=== PATIENT | female | born 1980 | race Caucasian/White ===

== ENCOUNTER 2016-11-27 03:57 | Inpatient (IN) | payer BC ==
[~2016-11-27] VITALS: Ht 165.1 cm; Wt 98.3 kg
[2016-11-27 04:46] LABS: URINE BLOOD (Dip) POC Trace-intact (NEGATIVE)
[2016-11-27 05:02] LABS: ADD UMIC YES; URINE BILIRUBIN (Dip) NEGATIVE (NEGATIVE); URINE BLOOD (Dip) TRACE (NEGATIVE); URINE COLOR LT. YELLOW (YELLOW); URINE GLUCOSE (Dip) >=1000 % (NEGATIVE); URINE KETONES (Dip) NEGATIVE (NEGATIVE); URINE LEUKOCYTE ESTERASE (Dip) NEGATIVE (NEGATIVE); URINE NITRITE (Dip) NEGATIVE (NEGATIVE); URINE TOTAL PROTEIN (Dip) NEGATIVE (NEGATIVE); URINE UROBILINOGEN (Dip) 0.2 E.U./dL (0.1-1.0)
[2016-11-27] MEDS ORDERED: morphine 4 MG/ML VIAL IV STA (05:07)
[2016-11-27] MEDS ORDERED: SOD CHLORIDE 0.9% 500 ML IV STA (05:07)
[2016-11-27] MEDS ORDERED: ONDANSETRON 4 MG INJ IV STA (05:07)
[2016-11-27 05:24] LABS: BACTERIA,URINE MANY; SQUAMOUS EPITHELIAL CELL,UR OCCASIONAL; URINE RBCS 0-2 /HPF (0)
[2016-11-27] MEDS ORDERED: IBUPROFEN 600 MG TAB PO ONE (05:30)
[2016-11-27 05:36] LABS: ADD SCAN DIFF NO
[2016-11-27 06:01] LABS: CALCIUM 9.6 mg/dl (8.4-10.2); CREATININE 0.63 mg/dl (0.44-1.00); POTASSIUM 3.3 mmol/L (3.5-5.1)
[2016-11-27 06:02] LABS: ABNORMAL IP MESSAGE 1; HEMATOCRIT 38.1 % (37.0-47.0); HEMOGLOBIN 12.5 g/dl (12.0-16.0); MEAN CORPUSCULAR HEMOGLOBIN 32.6 pg (29.0-33.0); MEAN CORPUSCULAR HGB CONC 32.8 g/dl (32.0-37.0); MEAN CORPUSCULAR VOLUME 99.2 fl (82.0-101.0); MEAN PLATELET VOLUME 9.5 fl (7.4-10.4); PLATELET COUNT 299 10^3/UL (140-415); RED BLOOD COUNT 3.84 10^6/ul (4.20-5.40); RED CELL DISTRIBUTION WIDTH 14.7 % (11.5-14.5); WHITE BLOOD COUNT 7.8 10^3/ul (4.8-10.8)
[2016-11-27] MEDS ORDERED: DICLOFENAC SODIUM 37.5 MG/ML VIAL IV STA (06:20)
--- NOTE | 2016-11-27 07:11 | RADRPT ---
PROCEDURE: US Pelvis. CLINICAL INDICATION: Pelvic pain TECHNIQUE: Sonographic evaluation of the pelvis was performed utilizing transabdominal technique o nly. Curved array transabdominal transducer was utilized. Images were reviewed on the [employer] on PACS workstation. COMPARISON: Ultrasound, 07/19/2009 FINDINGS: The uterus is normal in size, echogenicity, and morphology measuring 8.0 x 3.7 x 3.6 cm in dimension . The uterus is anteverted in normal position. The endometrium measures 3.9 mm in diameter. The normal trilaminar stripe of the endometrium is preserved. The right ovary measures 2.4 x 1.3 x 1.8 cm in dimension. The left ovary measures 2.9 x 1.3 x 2.1 c m in dimension, and demonstrates a 14 mm dominant follicle. No ovarian torsion, adnexal mass or pel yovana free fluid is identified. IMPRESSION: 1. Left ovary demonstrates a 14 mm dominant follicle. 2. Otherwise unremarkable ultrasound exam. RPTAT: PP .Drew Santo MD, Date Time Electronically viewed and signed by .Drew Santo MD, on 11/27/2016 07:11 .R/
[2016-11-27] MEDS ORDERED: SOD CHLORIDE 0.9% 100 ML ONE (07:29)
[2016-11-27] MEDS ORDERED: IOHEXOL 300MG/ML 150 ML BTL ONE (07:29)
[2016-11-27 07:55] LABS: LYMPHOCYTES # 1.1 10^3/ul (0.8-2.9); MONOCYTE # 0.2 10^3/ul (0.3-0.9); MYELOCYTES # 0.2; NEUTROPHIL # 5.6 10^3/ul (1.6-7.5)
[2016-11-27] MEDS ORDERED: NICARDipine HCL 30 MG CAPSULE PO ONE (08:00)
--- NOTE | 2016-11-27 08:19 | RADRPT ---
PROCEDURE: CT Abdomen and Pelvis with contrast. CLINICAL INDICATION: Abdominal pain. TECHNIQUE: CT scan of the abdomen and pelvis with contrast was performed utilizing axial tomograph ic images from the domes the diaphragm to the symphysis pubis. The patient was scanned post uncomp licated intravenous administration of 100 cc of Omnipaque 300. Coronal and sagittal reformatted omid ges were obtained from the axial source images. Images were reviewed on a high-resolution PACS works tation. The total exam CTDI equals 19.94 mGy and the total exam DLP equals 1253.45 mGy-cm. One or m ore of the following dose reduction techniques were used: Automated exposure control, adjustment of the mA and / or kV according to patient size, or use of iterative reconstruction technique. COMPARISON: Pelvic ultrasound performed earlier on the same date FINDINGS: The lung bases demonstrate mild bilateral dependent atelectasis. The liver is normal in size and c ontour. No focal intrahepatic masses are identified. There is no intra or extrahepatic biliary dil atation. The gallbladder is unremarkable by CT criteria. The spleen, pancreas, and adrenal glands are unremarkable. The kidneys are symmetric in size and demonstrate normal enhancement. No hydronephrosis or hydroure ter is seen. No renal parenchymal mass is identified. The urinary bladder is unremarkable. There are scattered foci of free air throughout the abdomen. The bowel demonstrates normal course a nd caliber. There is no evidence of bowel obstruction. There is focal bowel wall thickening and mes enteric fat stranding along the distal sigmoid colon with adjacent pocket of free air suggesting sit e of viscus perforation. The appendix is normal in appearance. The uterus and adnexa are unremarkab le. There is small free fluid along the liver and within the pelvis. No retroperitoneal, mesenteric, or inguinal adenopathy is identified. The abdominal aorta and major branching vessels are normal in caliber. The osseous structures are u nremarkable. No significant subcutaneous soft tissue abnormality is identified. IMPRESSION: 1. Perforated viscus. Site of perforation appears to be the distal sigmoid colon which demonstrate s mucosal thickening and adjacent mesenteric fat stranding. No source of perforation is identified. No diverticula are identified. 2. Small volume abdominal and pelvic ascites. Critical results were discussed with Dr. Cartagena on 11/27/2016 at 8:14 AM RPTAT: HH .Kanwal Becker MD, MD Date Time Electronically viewed and signed by .Kanwal Becker MD, MD on 11/27/2016 08:19 .G/
[2016-11-27] MEDS ORDERED: ERTAPENEM SODIUM 1 GM in SOD CHLORIDE 0.9% 100 ML IVPB ONE (08:30)
--- NOTE | 2016-11-27 08:51 | ERA ---
ER Documentation Chief Complaint Date/Time DATE: 11/27/16 TIME: 08:44 Chief Complaint lower abd/pelvic pain x3 days. pain during urination HPI This is a 36 year female complaining of some lower abdominal pain onset yesterday late afternoon has progressively gotten worse over the night. The patient is a very poor historian. She describes the pain is sharp and achy. She says that she feels like there is a pulsation in her lower pelvis and has some vaginal pain. Is also complaining of some dysuria for the past 3 days but no hematuria no nausea vomiting diarrhea no fever. No chest pain shortness of breath. ROS All systems reviewed and are negative except as per history of present illness. Medications Home Meds No Active Prescriptions or Reported Meds Allergies Allergies: Coded Allergies: No Known Allergy (Unverified , 08/02/15) PMhx/Soc History of Surgery: Yes (D&C X3) Anesthesia Reaction: No Hx Neurological Disorder: No Hx Respiratory Disorders: No Hx Cardiac Disorders: No Hx Psychiatric Problems: No Hx Miscellaneous Medical Probl: Yes (diabetes, htn) Hx Alcohol Use: No Hx Substance Use: No Hx Tobacco Use: No Smoking Status: Never smoker FmHx Family History: No coronary disease Physical Exam Vitals Vital Signs Date Time Temp Pulse Resp B/P Pulse Ox O2 Delivery O2 Flow Rate FiO2 11/27/16 07:00 100 18 152/108 100 Room Air 11/27/16 04:03 98.3 92 18 177/113 100 Physical Exam Const: Well-developed, well-nourished Head: Atraumatic, normocephalic Eyes: Normal Conjunctiva, PERRLA, EOMI, normal sclera, no nystagmus ENT: Normal External Ears, Nose and Mouth, moist mucus membranes. Neck: Full range of motion. No meningismus, no lymphadenopathy. Resp: Clear to auscultation bilaterally, no wheezing, rhonchi, rales Cardio: Regular rate and rhythm, no murmurs, S1 S2 present Abd: Soft, diffuse tenderness with most tenderness in bilateral lower quadrants moderate in nature some mild localized rebound mild guarding, non distended. Normal bowel sounds, no pulsitile abdominal masses or bruits Skin: No petechiae or rashes, no ecchymosis , no maculopapular rash Back: No midline or flank tenderness Ext: No cyanosis, or edema, FROM x 4, normal inspection, neurovascularly intact x 4 Neur: Awake and alert, STR 5/5 x 4, sensation intact x 4, no focal findings, cerebellum intact Psych: Normal Mood and Affect Result Diagram: 11/27/1651811/27/16 0519 Results 24 hrs Laboratory Tests Test 11/27/16 04:31 11/27/16 04:48 11/27/16 05:19 Urine Color LT. YELLOW Urine Clarity CLEAR Urine pH 6.0 Urine Specific [place] 1.010 Urine Ketones NEGATIVE Urine Nitrite NEGATIVE Urine Bilirubin NEGATIVE Urine Urobilinogen 0.2 E.U./dL Urine Leukocyte Esterase NEGATIVE Urine Microscopic RBC 0-2/HPF Urine Microscopic WBC 0-2/HPF Urine Squamous Epithelial Cells OCCASIONAL Urine Bacteria MANY Urine Starch OCCASIONAL Urine Hemoglobin TRACE Urine Glucose >=1000% Urine Total Protein NEGATIVE Bedside Urine pH (LAB) 6.0 Bedside Urine Protein (LAB) Negative Bedside Urine Glucose (UA) 0.50% Bedside Urine Ketones (LAB) Negative Bedside Urine Blood Trace-intact Bedside Urine Nitrite (LAB) Negative Bedside Urine Leukocyte Esterase (L Negative White Blood Count 7.810^3/ul Red Blood Count 3.8410^6/ul Hemoglobin 12.5g/dl Hematocrit 38.1% Mean Corpuscular Volume 99.2fl Mean Corpuscular Hemoglobin 32.6pg Mean Corpuscular Hemoglobin Concent 32.8g/dl Red Cell Distribution Width 14.7% Platelet Count 23364^3/UL Mean Platelet Volume 9.5fl Neutrophils % 72.0% Band Neutrophils % 6.0% Lymphocytes % 14.0% Reactive Lymphocytes % 1.0% Monocytes % 3.0% Metamyelocytes % 2.0% Myelocytes % 2.0% Nucleated Red Blood Cells % 1.0/100WBC Neutrophils # 5.610^3/ul Lymphocytes # 1.110^3/ul Monocytes # 0.210^3/ul Metamyelocytes # 0.2 Myelocytes # 0.2 Sodium Level 142mmol/L Potassium Level 3.3mmol/L Chloride Level 102mmol/L Carbon Dioxide Level 29mmol/L Anion Gap 14 Blood Urea Nitrogen 28mg/dl Creatinine 0.63mg/dl Glucose Level 304mg/dl Calcium Level 9.6mg/dl Current Medications Medications (Trade) Dose Ordered Sig/Danyel Route PRN Reason Start Time Stop Time Status Last Admin Dose Admin Sodium Chloride (NS) 500 ml @ 500 mls/hr Q1H STAT IV 11/27/16 05:07 11/27/16 06:06 DC Morphine Sulfate (morphine) 4 mg ONCE STAT IV 11/27/16 05:07 11/27/16 05:13 DC Ondansetron HCl (Zofran Inj) 4 mg ONCE STAT IV 11/27/16 05:07 11/27/16 05:13 DC Ibuprofen (Motrin) 600 mg ONCE ONCE PO 11/27/16 05:30 11/27/16 05:31 DC 11/27/16 05:32 Diclofenac Sodium (Dyloject) 37.5 mg ONCE STAT IV 11/27/16 06:20 11/27/16 06:21 DC 11/27/16 07:07 IV Flush 10 ml 10 ml STK-MED ONCE .ROUTE 11/27/16 07:29 11/27/16 07:30 DC 11/27/16 07:56 Sodium Chloride (NS) 100 ml @ ud STK-MED ONCE .ROUTE 11/27/16 07:29 11/27/16 07:30 DC 11/27/16 07:56 Iohexol (Omnipaque 300mg/ ml) 150 ml STK-MED ONCE .ROUTE 11/27/16 07:29 11/27/16 07:30 DC 11/27/16 07:59 Nicardipine HCl 30 mg 30 mg ONCE ONCE PO 11/27/16 08:00 11/27/16 08:01 DC 11/27/16 07:42 Ertapenem/Sodium Chloride (Invanz/NS) 100 ml @ 200 mls/hr ONCE ONCE IVPB 11/27/16 08:30 11/27/16 08:59 Procedures/MDM OCEDURE: US Pelvis. CLINICAL INDICATION: Pelvic pain TECHNIQUE: Sonographic evaluation of the pelvis was performed utilizing transabdominal technique only. Curved array transabdominal transducer was utilized. Images were reviewed on the high-resolution PACS workstation. COMPARISON: Ultrasound, 07/19/2009 FINDINGS: The uterus is normal in size, echogenicity, and morphology measuring 8.0 x 3.7 x 3.6 cm in dimension. The uterus is anteverted in normal position. The endometrium measures 3.9 mm in diameter. The normal trilaminar stripe of the endometrium is preserved. The right ovary measures 2.4 x 1.3 x 1.8 cm in dimension. The left ovary measures 2.9 x 1.3 x 2.1 cm in dimension, and demonstrates a 14 mm dominant follicle. No ovarian torsion, adnexal mass or pelvic free fluid is identified. IMPRESSION: 1. Left ovary demonstrates a 14 mm dominant follicle. 2. Otherwise unremarkable ultrasound exam. RPTAT: PP .Drew Santo MD, MD Date Time Electronically viewed and signed by .Drew Santo MD, MD on 11/27/2016 07: 11 .R/ CC: JAMESON LEON PROCEDURE: CT Abdomen and Pelvis with contrast. CLINICAL INDICATION: Abdominal pain. TECHNIQUE: CT scan of the abdomen and pelvis with contrast was performed utilizing axial tomographic images from the domes the diaphragm to the symphysis pubis. The patient was scanned post uncomplicated intravenous administration of 100 cc of Omnipaque 300. Coronal and sagittal reformatted images were obtained from the axial source images. Images were reviewed on a high-resolution PACS workstation. The total exam CTDI equals 19.94 mGy and the total exam DLP equals 1253.45 mGy-cm. One or more of the following dose reduction techniques were used: Automated exposure control, adjustment of the mA and / or kV according to patient size, or use of iterative reconstruction technique. COMPARISON: Pelvic ultrasound performed earlier on the same date FINDINGS: The lung bases demonstrate mild bilateral dependent atelectasis. The liver is normal in size and contour. No focal intrahepatic masses are identified. There is no intra or extrahepatic biliary dilatation. The gallbladder is unremarkable by CT criteria. The spleen, pancreas, and adrenal glands are unremarkable. The kidneys are symmetric in size and demonstrate normal enhancement. No hydronephrosis or hydroureter is seen. No renal parenchymal mass is identified. The urinary bladder is unremarkable. There are scattered foci of free air throughout the abdomen. The bowel demonstrates normal course and caliber. There is no evidence of bowel obstruction. There is focal bowel wall thickening and mesenteric fat stranding along the distal sigmoid colon with adjacent pocket of free air suggesting site of viscus perforation. The appendix is normal in appearance. The uterus and adnexa are unremarkable. There is small free fluid along the liver and within the pelvis. No retroperitoneal, mesenteric, or inguinal adenopathy is identified. The abdominal aorta and major branching vessels are normal in caliber. The osseous structures are unremarkable. No significant subcutaneous soft tissue abnormality is identified. IMPRESSION: 1. Perforated viscus. Site of perforation appears to be the distal sigmoid colon which demonstrates mucosal thickening and adjacent mesenteric fat stranding. No source of perforation is identified. No diverticula are identified. 2. Small volume abdominal and pelvic ascites. Critical results were discussed with Dr. Obrien on 11/27/2016 at 8:14 AM RPTAT: HH .Kanwal Becker MD, MD Date Time Electronically viewed and signed by .Kanwal Becker MD, on 11/27/2016 08 :19 .G/ CC: BREE OBRIEN DO Patient was given 1 g of Invanz IV. I spoke with general surgeon on-call Dr. Unger who was seen in consultation. Departure Diagnosis: Primary Impression: Bowel perforation Condition: Stable BREE OBRIEN DO Nov 27, 2016 08:51
[2016-11-27] MEDS ORDERED: ACETAMINOPHEN 325 MG TAB PO PRN (09:30)
[2016-11-27] MEDS ORDERED: ONDANSETRON 4 MG INJ IV PRN (09:30)
[2016-11-27] MEDS: SOD CHLORIDE 0.9% 1,000 ML IV SCH ×2 (09:47→11:19)
--- NOTE | 2016-11-27 09:53 | RADRPT ---
PROCEDURE: Chest Radiograph. CLINICAL INDICATION: Chest pain TECHNIQUE: Single frontal chest radiograph. COMPARISON: CT abdomen pelvis 11/27/2016 FINDINGS: The cardiomediastinal silhouette is within normal limits. Note is made of pneumoperitoneum. No infi ltrate or effusion is seen. The bones are intact. IMPRESSION: 1. No evidence of acute cardiopulmonary disease. 2. Pneumoperitoneum, previously reported to Dr. Cartagena at time of CT scan interpretation. RPTAT: KK .Filiberto Young MD, MD Date Time Electronically viewed and signed by .Filiberto Young MD, MD on 11/27/2016 09:52 .B/
[2016-11-27] MEDS ORDERED: METF500T4 PO (09:56)
[2016-11-27] MEDS ORDERED: BUSP10TA2 PO (09:57)
[2016-11-27] MEDS ORDERED: VALS320T11 PO (09:57)
[2016-11-27] MEDS ORDERED: FURO20TA3 PO (09:57)
[2016-11-27] MEDS ORDERED: CITA20TA11 PO (09:58)
[2016-11-27 10:19] LABS: INR 0.91; PROTIME 12.3 Sec (12.2-14.2)
[2016-11-27 11:07] LABS: ALBUMIN 4.4 g/dl (3.3-4.9); BILIRUBIN,INDIRECT 0.5 mg/dl (0-1.1); BILIRUBIN,TOTAL 0.5 mg/dl (0.2-1.3); TOTAL PROTEIN 6.2 g/dl (6.1-8.1)
[2016-11-27 11:41] LABS: PARTIAL THROMBOPLASTIN TIME 20.8 Sec (25.0-35.0)
--- NOTE | 2016-11-27 12:35 | HP ---
Date/Time of Note Date/Time of Note DATE: 11/27/16 TIME: 12:35 Assessment/Plan VTE Prophylaxis VTE Prophylaxis Intervention: SCD's Lines/Catheters IV Catheter Type (from Nrsg): Peripheral IV Assessment/Plan Assessment/Plan 36 yo F with pmhx obesity cb DM2, HTN and depression/anxiety admitted for abd pain found to have sigmoid perforation with peritonitis. #sigmoid perforation with peritonitis -general surgery Dr Unger on consult. defer to gen surg regarding surgical planning -cont abx as per gen surg #depression/anxiety: cont home meds #HTN: cont home arb #DM2: hold metformin. SSI with accuchecks FEN: NPO, advance as per gen surg Prophx: SCDs/SQH dispo: as per gen surg HPI/ROS Admit Date/Time Admit Date/Time Nov 27, 2016 at 09:30 Hx of Present Illness 36 yo F presents with 1 day of severe diffuse abd and vaginal pain. CT in the ER revealed colonic perforation. Pt denies any recent heavy NSAID use or any h/ o IBD. Pt quite anxious because she is supposed to start a new job next week and does not know how long she'll be in the hospital. ROS 10p ROS neg except as per HPI PMH/Family/Social Past Medical History depression/anxiety, HTN, DM2, obesity Past Surgical History h/o D and C 2.16 for incomplete Ab Social History starts new job next week Smoking Status: Never smoker Exam/Review of Systems Vital Signs Vitals Vital Signs Date Time Temp Pulse Resp B/P Pulse Ox O2 Delivery O2 Flow Rate FiO2 11/27/16 09:24 95 20 136/99 97 Room Air 11/27/16 04:03 98.3 Exam Exam anxious, laying in bed MMM EOMI moves exts freely abd diffusely tender to palpation, no rebound or guarding rrr no mrg lungs clear no rashes Labs Result Diagram: 11/27/1651811/27/16518 Medications Medications Current Medications Sodium Chloride 1,000 ml @ 80 mls/hr [id number] IV Last administered on t 09:47; Admin Dose 80 MLS/HR; Start 11/27/16 at 09:27; Stop 11/27/16 at 21: 56 Piperacillin Sod/ Tazobactam Sod 100 ml @ 200 mls/hr Q6 IVPB ; Start 11/27/16 at 18:00 Metronidazole (Flagyl 500 Mg (Pmx)) 100 ml @ 100 mls/hr Q8 IVPB ; Start at 14:[address] results reviewed LOS COLBY MD Nov 27, 2016 12:35
--- NOTE | 2016-11-27 12:59 | CONS ---
DATE OF ADMISSION: 11/27/2016 DATE OF CONSULTATION: 11/27/2016 TYPE OF CONSULTATION: Surgical. REASON FOR CONSULTATION: Perforated viscus. HISTORY OF PRESENT ILLNESS: The patient is a 36-year-old female who states that over the last 2 to 3 days she started to develop pain in the lower abdomen. This followed an episode of eating salmon. She is also complaining of dysuria. In the emergency room, she was noted to have a tender left lo wer quadrant, although her white count is normal, the CT scan showed scattered foci of pneumoperiton eum with likely source in the sigmoid colon. The patient states that she is markedly symptomaticall y improved since her admission and currently has no pain. PAST MEDICAL HISTORY: No previous hospitalizations or surgeries other than the D and C. REVIEW OF SYSTEMS: HEAD, EARS, EYES, NOSE AND THROAT: Unremarkable. PULMONARY: No history of pneumonia or shortness of breath. CARDIAC: No history of chest pain, AL or arrhythmia. ABDOMEN: As in the HPI. MEDICATIONS: None. ALLERGIES: NONE. PHYSICAL EXAMINATION: GENERAL: The patient is an overweight 36-year-old female in no acute distress. She has a very flat affect. HEENT: Within normal limits. LUNGS: Clear. HEART: Regular rhythm. ABDOMEN: It is tender in the left lower quadrant with mild guarding but no rebound. EXTREMITIES: Unremarkable. LABORATORY DATA: The patient's hematocrit is 38.1 with a white count of 7800 without left shift. IMAGING: As noted above. IMPRESSION: Pneumoperitoneum, etiology in the colon, no evidence of diverticulitis. The patient is afebrile with a normal white count and has symptoms limited to the left lower quadrant. We will tr eat empirically for the next 24 hours with intravenous antibiotics and bowel rest. Surgery will be required for this patient for medical treatment failure. Further recommendations will be forthcomin g based on the patient's further workup and clinical course. Dictated By: WESTON GATES/JEANINE Conf#: [id number] DID#: [id number]
[2016-11-27] MEDS: metroNIDAZOLE 500 MG/NS (PMX) 100 ML IVPB SCH ×2 (13:18→21:56)
[2016-11-27 13:19] VITALS: BP 139/101; RESP 16
[2016-11-27 13:43] VITALS: Ht 165.1 cm; Wt 98.3 kg
[2016-11-27 13:58] VITALS: BP 139/101; PULSE 110; RESP 18
[2016-11-27] MEDS ORDERED: NACL 0.9% 3 ML SYG IV SCH (16:00)
[2016-11-27] MEDS: PIPER-TAZO 3.375 GM IV (PMX) 100 ML IVPB SCH (17:57)
[2016-11-27] MEDS: FUROSEMIDE 20 MG TAB PO SCH (17:57)
[2016-11-27] MEDS: INSULIN ASPART [NOVOLOG] 3 ML PEN SC SCH ×2 (18:04→21:54)
[2016-11-27 20:29] VITALS: BP 137/88; RESP 19
[2016-11-27] MEDS: BUSPIRONE 10 MG TAB PO SCH (21:52)
[2016-11-27] MEDS: HEPARIN 5,000 UNIT/0.5 ML VIAL SC SCH (22:08)
[2016-11-28] VITALS (20 sets, daily range): BP systolic 123–158; BP diastolic 83–109; PULSE 50–82; RESP 12–29
[2016-11-28] MEDS: PIPER-TAZO 3.375 GM IV (PMX) 100 ML IVPB SCH ×4 (00:59→17:06)
[2016-11-28] MEDS: ACCU-CHEK XX SCH (02:00)
[2016-11-28] MEDS ORDERED: ACETAMINOPHEN 325 MG TAB PO ONE (03:00)
[2016-11-28] MEDS: HEPARIN 5,000 UNIT/0.5 ML VIAL SC SCH ×3 (05:17→22:44)
[2016-11-28 05:19] LABS: ADD SCAN DIFF NO
[2016-11-28 05:22] LABS: ABNORMAL IP MESSAGE 1; EOSINOPHILS % 0.1 % (0.0-7.0); HEMATOCRIT 32.1 % (37.0-47.0); HEMOGLOBIN 10.4 g/dl (12.0-16.0); LYMPHOCYTES # 0.5 10^3/ul (0.8-2.9); LYMPHOCYTES % 5.3 % (15.0-51.0); MEAN CORPUSCULAR HEMOGLOBIN 32.9 pg (29.0-33.0); MEAN CORPUSCULAR HGB CONC 32.4 g/dl (32.0-37.0); MEAN CORPUSCULAR VOLUME 101.6 fl (82.0-101.0); MEAN PLATELET VOLUME 9.1 fl (7.4-10.4); MONOCYTE # 0.5 10^3/ul (0.3-0.9); MONOCYTES % 4.8 % (0.0-11.0); NEUTROPHIL # 8.3 10^3/ul (1.6-7.5); NEUTROPHILS % 88.6 % (39.0-77.0); PLATELET COUNT 227 10^3/UL (140-415); RED BLOOD COUNT 3.16 10^6/ul (4.20-5.40); RED CELL DISTRIBUTION WIDTH 14.8 % (11.5-14.5); WHITE BLOOD COUNT 9.4 10^3/ul (4.8-10.8)
[2016-11-28] MEDS: FUROSEMIDE 20 MG TAB PO SCH ×2 (06:23→17:07)
[2016-11-28] MEDS: metroNIDAZOLE 500 MG/NS (PMX) 100 ML IVPB SCH ×3 (06:23→22:40)
[2016-11-28] MEDS: INSULIN ASPART [NOVOLOG] 3 ML PEN SC SCH ×4 (08:00→22:39)
[2016-11-28] MEDS: VALSARTAN 160 MG TAB PO SCH (08:37)
[2016-11-28] MEDS: BUSPIRONE 10 MG TAB PO SCH ×2 (08:37→21:00)
[2016-11-28] MEDS: CITALOPRAM 20 MG TAB PO SCH (08:37)
--- NOTE | 2016-11-28 16:07 | PN ---
Date/Time of Note Date/Time of Note DATE: 11/28/16 TIME: 16:06 Assessment/Plan VTE Prophylaxis VTE Prophylaxis Intervention: SCD's Lines/Catheters IV Catheter Type (from Nrsg): Peripheral IV Urinary Cath still in place: No Assessment/Plan Assessment/Plan 36 yo F with pmhx obesity cb DM2, HTN and depression/anxiety admitted for abd pain found to have sigmoid perforation with peritonitis. #sigmoid perforation with peritonitis -general surgery Dr Unger on consult. defer to gen surg regarding surgical planning -cont abx as per gen surg #depression/anxiety: cont home meds #HTN: cont home arb #DM2: hold metformin. SSI with accuchecks FEN: NPO, advance as per gen surg Prophx: SCDs/SQH dispo: as per gen surg Subjective 24 Hr Interval Summary Free Text/Dictation Pt remains very anxious. Lots of questions about her surgery scheduled for tonight, how laparoscopic surgery works Exam/Review of Systems Vital Signs Vitals Vital Signs Date Time Temp Pulse Resp B/P Pulse Ox O2 Delivery O2 Flow Rate FiO2 11/28/16 10:47 Nasal Cannula 2.0 11/28/16 07:50 99.0 74 16 158/109 95 Intake and Output 11/27/16 11/27/16 11/28/16 15:00 23:00 07:00 Intake Total 100 ml 900 ml 400 ml Balance 100 ml 900 ml 400 ml Exam anxious, sitting up in bed no mrg lungs clear abd with mild diffuse ttp no le edema Results Result Diagram: 11/28/16 0440 11/27/16 0519 Results 24 hrs Laboratory Tests Test 11/27/16 18:03 11/27/16 21:50 11/28/16 02:36 11/28/16 04:40 Bedside Glucose 242 H 208 185 White Blood Count 9.4 # Red Blood Count 3.16 L Hemoglobin 10.4 L Hematocrit 32.1 L Mean Corpuscular Volume 101.6 H Mean Corpuscular Hemoglobin 32.9 Mean Corpuscular Hemoglobin Concent 32.4 Red Cell Distribution Width 14.8 H Platelet Count 227 # Mean Platelet Volume 9.1 Neutrophils % 88.6 H Lymphocytes % 5.3 L Monocytes % 4.8 Eosinophils % 0.1 Basophils % 0.0 Nucleated Red Blood Cells % 0.0 Neutrophils # 8.3 H Lymphocytes # 0.5 L Monocytes # 0.5 Eosinophils # 0.0 Basophils # 0.0 Nucleated Red Blood Cells # 0.0 Hemoglobin A1c 8.2 H Test 11/28/16 08:41 11/28/16 12:47 Bedside Glucose 178 199 Medications Medications Current Medications Piperacillin Sod/ Tazobactam Sod 100 ml @ 200 mls/hr Q6 IVPB Last administered on 11/28/16 12:45; Admin Dose 200 MLS/HR; Start 11/27/16 at 18:00 Metronidazole (Flagyl 500 Mg (Pmx)) 100 ml @ 100 mls/hr Q8 IVPB Last administered on 11/28/16 14:00; Admin Dose 100 MLS/HR; Start 11/27/16 at 14:00 Buspirone HCl (Buspar) 10 mg BID PO Last administered on 11/28/16 08:37; Admin Dose 10 MG; Start 11/27/16 at 21:00 Citalopram Hydrobromide (Celexa) 20 mg DAILY PO Last administered on 11/28/16 08:37; Admin Dose 20 MG; Start 11/28/16 at 09:00 Valsartan (Diovan) 320 mg DAILY PO Last administered on 11/28/16 08:37; Admin Dose 320 MG; Start 11/28/16 at 09:00 Heparin Sodium (Porcine) (Heparin (5000 Units/0.5 ml)) 5,000 unit Q8 SC Last administered on 11/28/16 05:17; Admin Dose 5,000 UNIT; Start 11/27/16 at 22:00 Diagnostic Test (Pha) (Accu-Chek) 1 ea 02 XX ; Start 11/28/16 at 02:00 LOS COLBY MD Nov 28, 2016 16:07
[2016-11-28] MEDS ORDERED: MIDAZOLAM 1 MG/ML 2 ML INJ ONE (19:25)
[2016-11-28] MEDS ORDERED: BUPIVACAINE 0.25%/EPI (SDV) 30 ML INJ ONE (20:11)
[2016-11-28] MEDS ORDERED: NEOSTIGMINE 3 MG/3 ML SYRINGE ONE (20:25)
[2016-11-28] MEDS ORDERED: PROPOFOL 20 ML ONE (20:25)
[2016-11-28] MEDS ORDERED: GLYCOPYRROLATE 0.4 MG INJ ONE (20:25)
[2016-11-28] MEDS ORDERED: LIDOCAINE 2% (SDV) 5 ML INJ ONE (20:25)
[2016-11-28] MEDS ORDERED: ONDANSETRON 4 MG INJ ONE (20:28)
[2016-11-28] MEDS ORDERED: metroNIDAZOLE 500 MG/NS (PMX) 100 ML IVPB ONE (20:28)
[2016-11-28] MEDS ORDERED: HYDROmorphONE (0.2 MG/ML) 10ML SYG IV PRN (20:30)
[2016-11-28] MEDS ORDERED: FENTAnyl 50 MCG/ML VIAL IV PRN (20:30)
[2016-11-28] MEDS ORDERED: morphine 2 MG INJ IV PRN (20:30)
[2016-11-28] MEDS ORDERED: MEPERIDINE 25 MG INJ IV PRN (20:30)
[2016-11-28] MEDS ORDERED: ONDANSETRON 4 MG INJ IV PRN ×2 (20:30)
[2016-11-28] MEDS ORDERED: DIPHENHYDRAMINE 50 MG INJ IV PRN (20:30)
[2016-11-28] MEDS: HYDROmorphONE (0.2 MG/ML) 10ML SYG IV PRN ×3 (21:07→21:35)
--- NOTE | 2016-11-28 21:07 | OPR ---
DATE OF OPERATION: 11/28/2016 PREOPERATIVE DIAGNOSIS: Perforated sigmoid diverticulitis. OPERATION PERFORMED: 1. Diagnostic laparoscopy 2. Placement of drain. POSTOPERATIVE DIAGNOSIS: Diverticulitis with microperforation, sealed off. No evidence of peritoni tis intraabdominally other than the site of the localized perforation of the sigmoid. SURGEON: Weston Unger MD ANESTHESIA: General. ANESTHESIOLOGIST: Dr. Raygoza OPERATIVE REPORT: After satisfactory general anesthesia was achieved, a Frank catheter was placed, and the abdomen was prepped and draped. The abdomen was insufflated with carbon dioxide through an infraumbilical Veress needle to 15 mmHg pressure. The Veress needle was removed and the umbilical i ncision extended to 5 mm, through which a 5 mm trocar was placed. A 5-mm, 0-degree lens was placed. Laparoscopy showed no evidence of peritonitis in the upper abdomen or right lower quadrant. In th e left lower quadrant, there was a small patch of fibrin where the sigmoid colon loop was adhered to the abdominal wall. These were findings compatible with a sealed microperforation. Under direct v isualization, a 5 mm suprapubic trocar was placed as well as a 12 mm left lower quadrant trocar was placed. The sigmoid was peeled off the anterior abdominal wall. There was no pus, only fibrin. Th e perforation was a microperforation, which was not well visualized, but was clearly well sealed off at the time of surgery. For this reason, it was considered feasible to treat with simple drainage. A #19 round Craig drain was placed, draining the involved sigmoid loop and the surrounding tissues . It exited through the suprapubic port where secured to skin with 2-0 nylon. The abdomen was then desufflated and the trocars were removed. Prior to completion of the procedure, a portion of few d rops of purulent fluid were cultured from within the suction tubing. The abdomen was then desufflat ed and all trocars were removed. The skin punctures were infiltrated with 30 mL of 0.25% Marcaine w ith epinephrine and closed with ashely. Operative blood loss less than 5 mL. Sponge and needle co unts reported as correct x2. The patient tolerated the procedure well and without incident or compl ication. Dictated By: WESTON GATES/NTS Conf#: [id number] DID#: [id number] CC: JUAN GRAY MD;*[facility]*
[2016-11-29] MEDS: PIPER-TAZO 3.375 GM IV (PMX) 100 ML IVPB SCH ×4 (00:02→17:22)
[2016-11-29] MEDS: ACCU-CHEK XX SCH (01:43)
[2016-11-29] MEDS: metroNIDAZOLE 500 MG/NS (PMX) 100 ML IVPB SCH ×3 (05:07→21:02)
[2016-11-29] MEDS: FUROSEMIDE 20 MG TAB PO SCH ×3 (05:30→17:25)
[2016-11-29 06:02] LABS: ADD SCAN DIFF NO
[2016-11-29 06:07] LABS: ABNORMAL IP MESSAGE 1; BASOPHILS % 0.1 % (0.0-2.0); HEMOGLOBIN 10.3 g/dl (12.0-16.0); LYMPHOCYTES # 0.5 10^3/ul (0.8-2.9); LYMPHOCYTES % 5.7 % (15.0-51.0); MEAN CORPUSCULAR HEMOGLOBIN 32.9 pg (29.0-33.0); MEAN CORPUSCULAR HGB CONC 32.2 g/dl (32.0-37.0); MEAN CORPUSCULAR VOLUME 102.2 fl (82.0-101.0); MEAN PLATELET VOLUME 9.2 fl (7.4-10.4); MONOCYTE # 0.4 10^3/ul (0.3-0.9); MONOCYTES % 4.9 % (0.0-11.0); NEUTROPHIL # 7.9 10^3/ul (1.6-7.5); NEUTROPHILS % 88.1 % (39.0-77.0); PLATELET COUNT 250 10^3/UL (140-415); RED BLOOD COUNT 3.13 10^6/ul (4.20-5.40); RED CELL DISTRIBUTION WIDTH 14.5 % (11.5-14.5); WHITE BLOOD COUNT 8.9 10^3/ul (4.8-10.8)
[2016-11-29] MEDS: HEPARIN 5,000 UNIT/0.5 ML VIAL SC SCH ×3 (06:11→21:01)
--- NOTE | 2016-11-29 07:12 | PN ---
DATE: 11/28/2016 SUBJECTIVE: The patient's abdominal pain has progressed and now she has right-sided abdominal pain with right shoulder pain. OBJECTIVE: ABDOMEN: Tender in the left lower quadrant, but has expanded to all 4 quadrants. LABORATORY DATA: Although her white count is 9400, she has developed a left shift with 88.6 neutrop hils. IMPRESSION: Free intraperitoneal perforation not controlled with bowel rest and antibiotics. PLAN: The patient will require laparoscopy with possible laparotomy and bowel resection with a temp orary colostomy. I have discussed the procedure and risks in outlined alternatives in detail with t he patient who has a reasonable understanding of her situation and agrees to the proposed plan of erapy as outlined. Dictated By: WESTON GATES/JEANINE Conf#: [id number] DID#: [id number]
[2016-11-29 07:43] VITALS: BP 136/91; RESP 20
[2016-11-29] MEDS: INSULIN ASPART [NOVOLOG] 3 ML PEN SC SCH ×4 (08:30→20:59)
[2016-11-29] MEDS: VALSARTAN 160 MG TAB PO SCH (09:00)
[2016-11-29] MEDS: BUSPIRONE 10 MG TAB PO SCH ×2 (09:00→20:57)
[2016-11-29] MEDS: CITALOPRAM 20 MG TAB PO SCH (09:00)
[2016-11-29] MEDS: D5W-0.45 NACL + KCL 20 MEQ 1,000 ML IV SCH (10:01)
--- NOTE | 2016-11-29 11:38 | PN ---
Date/Time of Note Date/Time of Note DATE: 11/29/16 TIME: 11:33 Assessment/Plan VTE Prophylaxis VTE Prophylaxis Intervention: SCD's Lines/Catheters IV Catheter Type (from Nrs): Peripheral IV Urinary Cath still in place: No Assessment/Plan Chief Complaint/Hosp Course Assessment and plan 1. diverticulitis with perforation. Of note patient status post diagnostic laparoscopy and placement of drain. No evidence of peritonitis per report. Continue with antibiotics. Drain in place. DC per surgeon. Advance diet per surgeon recommendations. 2. Essential hypertension. Will provide with hydralazine as needed for SBP greater than 160. Patient resumed on her oral medications once able to tolerate oral diet.. 3. Type 2 diabetes. Continue on insulin regimen. 4. History of major depression. Patient to be resumed on BuSpar and Celexa once able to tolerate oral intake Disposition and plan: Continue with analgesics as needed. Advance diet per surgeon recommendations. DC when medically stable and cleared by consultants. Continue on antibiotics. Discussed plan of care with Dr. Hamilton Problems: Subjective 24 Hr Interval Summary Free Text/Dictation reports some abd discomfort, minimal Exam/Review of Systems Vital Signs Vitals Vital Signs Date Time Temp Pulse Resp B/P Pulse Ox O2 Delivery O2 Flow Rate FiO2 11/29/16 07:43 98.5 67 20 136/91 95 11/28/16 21:47 Nasal Cannula 2.0 Intake and Output 11/28/16 11/28/16 11/29/16 15:00 23:00 07:00 Intake Total 200 ml 500 ml 300 ml Output Total 140 ml 830 ml Balance 200 ml 360 ml -530 ml Exam Constitutional: alert, oriented Psych: nl mood/affect Head: normocephalic Eyes: nl conjunctiva Neck: supple, No jvd Respiratory: clear to auscultation, normal air movement Cardiovascular: other (regular rate ) Gastrointestinal: soft, tender (minimally) Musculoskeletal: nl extremities to inspection Extremities: normal pulses Neurological: CURBING STONECUTTER II-XII intact, nl mental status Skin: other (surgical site cdi with TURNER drain lower abdomen ) Results Result Diagram: 11/29/16 0425 11/27/16 0519 Results 24 hrs Laboratory Tests Test 11/28/16 12:47 11/28/16 17:10 11/28/16 21:29 11/28/16 22:38 Bedside Glucose 199 150 151 170 Test 11/29/16 04:25 11/29/16 08:19 White Blood Count 8.9 Red Blood Count 3.13 L Hemoglobin 10.3 L Hematocrit 32.0 L Mean Corpuscular Volume 102.2 H Mean Corpuscular Hemoglobin 32.9 Mean Corpuscular Hemoglobin Concent 32.2 Red Cell Distribution Width 14.5 Platelet Count 250 Mean Platelet Volume 9.2 Neutrophils % 88.1 H Lymphocytes % 5.7 L Monocytes % 4.9 Eosinophils % 0.0 Basophils % 0.1 Nucleated Red Blood Cells % 0.0 Neutrophils # 7.9 H Lymphocytes # 0.5 L Monocytes # 0.4 Eosinophils # 0.0 Basophils # 0.0 Nucleated Red Blood Cells # 0.0 Bedside Glucose 154 Medications Medications Current Medications Piperacillin Sod/ Tazobactam Sod 100 ml @ 200 mls/hr Q6 IVPB Last administered on 11/29/16 06:12; Admin Dose 200 MLS/HR; Start 11/27/16 at 18:00 Metronidazole (Flagyl 500 Mg (Pmx)) 100 ml @ 100 mls/hr Q8 IVPB Last administered on 11/29/16 05:07; Admin Dose 100 MLS/HR; Start 11/27/16 at 14:00 Buspirone HCl (Buspar) 10 mg BID PO Last administered on 11/28/16 08:37; Admin Dose 10 MG; Start 11/27/16 at 21:00 Citalopram Hydrobromide (Celexa) 20 mg DAILY PO Last administered on 11/28/16 08:37; Admin Dose 20 MG; Start 11/28/16 at 09:00 Valsartan (Diovan) 320 mg DAILY PO Last administered on 11/28/16 08:37; Admin Dose 320 MG; Start 11/28/16 at 09:00 Heparin Sodium (Porcine) (Heparin (5000 Units/0.5 ml)) 5,000 unit Q8 SC Last administered on 11/29/16 06:11; Admin Dose 5,000 UNIT; Start 11/27/16 at 22:00 Diagnostic Test (Pha) (Accu-Chek) 1 ea 02 XX ; Start 11/28/16 at 02:00 Morphine Sulfate (morphine) 2 mg ONCE PRN IV SEVERE PAIN LEVEL 7-10 Last administered on 11/29/16 04:46; Admin Dose 2 MG; Start 11/28/16 at 20:30 Ondansetron HCl 4 mg 4 mg Q6H PRN IV NAUSEA; Start 11/28/16 at 20:30 Potassium Chloride/Dextrose/ Sod Cl (D5-1/2ns + KCl 20 Meq) 1,000 ml @ 60 mls/ hr [id number] IV Last administered on 11/29/16 10:01; Admin Dose 60 MLS/HR; Start 11/29/16 at 09:30 SHRUTHI BROTHERS Nov 29, 2016 11:38
[2016-11-29] MEDS ORDERED: morphine 2 MG INJ IV PRN (16:00)
[2016-11-29 17:30] VITALS: BP 160/99; PULSE 77
[2016-11-29] MEDS: hydrALAzine 20 MG INJ IV PRN (17:30)
[2016-11-29 17:51] VITALS: BP 153/97; PULSE 95
[2016-11-29 18:33] VITALS: BP 148/90; PULSE 98
--- NOTE | 2016-11-29 19:37 | PN ---
DATE: 11/29/2016 Postoperative day #1. The patient has no abdominal pain. She has been afebrile throughout. Her ite blood cell count is normal, though she still has a left shift. Her abdominal examination is millie ign. The TURNER drainage is just serous. PLAN: Advance diet to full liquids. The patient will likely be able to go home tomorrow with p.o. antibiotics and the drain. Dictated By: WESTON GATES/JEANINE Conf#: [id number] DID#: [id number]
[2016-11-29 21:26] VITALS: BP 157/96; RESP 19
[2016-11-29 23:30] VITALS: BP 140/82; PULSE 92
[2016-11-30] MEDS: ACCU-CHEK XX SCH (01:16)
[2016-11-30] MEDS: D5W-0.45 NACL + KCL 20 MEQ 1,000 ML IV SCH (02:10)
[2016-11-30] MEDS: PIPER-TAZO 3.375 GM IV (PMX) 100 ML IVPB SCH ×3 (05:04→11:56)
[2016-11-30] MEDS: HEPARIN 5,000 UNIT/0.5 ML VIAL SC SCH ×2 (05:28→13:25)
[2016-11-30] MEDS: FUROSEMIDE 20 MG TAB PO SCH (05:29)
[2016-11-30] MEDS: hydrALAzine 20 MG INJ IV PRN (05:30)
[2016-11-30] MEDS: metroNIDAZOLE 500 MG/NS (PMX) 100 ML IVPB SCH ×2 (06:11→13:24)
[2016-11-30] MEDS ORDERED: GLUCOSE GEL 15 GRAM TUBE BUCCAL PRN (07:00)
[2016-11-30] MEDS ORDERED: GLUCAGON 1 MG INJ IM PRN (07:00)
[2016-11-30] MEDS ORDERED: DEXTROSE 50% 50 ML SYRINGE IV PRN ×2 (07:00)
[2016-11-30] MEDS ORDERED: GLUCOSE GEL 15 GRAM TUBE PO PRN ×2 (07:00)
[2016-11-30 07:17] LABS: ADD SCAN DIFF NO
[2016-11-30 07:21] LABS: BASOPHILS % 0.2 % (0.0-2.0); HEMATOCRIT 39.6 % (37.0-47.0); HEMOGLOBIN 13.2 g/dl (12.0-16.0); LYMPHOCYTES # 0.7 10^3/ul (0.8-2.9); LYMPHOCYTES % 6.2 % (15.0-51.0); MEAN CORPUSCULAR HEMOGLOBIN 33.1 pg (29.0-33.0); MEAN CORPUSCULAR HGB CONC 33.3 g/dl (32.0-37.0); MEAN CORPUSCULAR VOLUME 99.2 fl (82.0-101.0); MEAN PLATELET VOLUME 9.4 fl (7.4-10.4); MONOCYTE # 0.5 10^3/ul (0.3-0.9); MONOCYTES % 4.5 % (0.0-11.0); NEUTROPHIL # 9.4 10^3/ul (1.6-7.5); NEUTROPHILS % 85.8 % (39.0-77.0); NUCLEATED RED BLOOD CELLS% 0.2 /100WBC (0.0-0.0); PLATELET COUNT 331 10^3/UL (140-415); RED BLOOD COUNT 3.99 10^6/ul (4.20-5.40); RED CELL DISTRIBUTION WIDTH 14.2 % (11.5-14.5)
[2016-11-30 08:00] VITALS: BP 130/89; RESP 18
[2016-11-30 08:11] LABS: CALCIUM 9.1 mg/dl (8.4-10.2); CREATININE 0.67 mg/dl (0.44-1.00)
[2016-11-30] MEDS: INSULIN ASPART [NOVOLOG] 3 ML PEN SC SCH ×2 (08:31→12:26)
[2016-11-30] MEDS: BUSPIRONE 10 MG TAB PO SCH (08:52)
[2016-11-30] MEDS: CITALOPRAM 20 MG TAB PO SCH (08:52)
[2016-11-30] MEDS: VALSARTAN 160 MG TAB PO SCH (08:53)
[2016-11-30 09:05] LABS: POTASSIUM 2.9 mmol/L (3.5-5.1)
--- NOTE | 2016-11-30 09:53 | PN ---
DATE: 11/30/2016 SURGERY PROGRESS NOTE Postoperative day #2. The patient remains afebrile throughout and has no abdominal pain. TURNER draina ge is minimal with 30 mL serous. Her abdominal examination is completely benign. IMPRESSION: Excellent postoperative recovery PLAN: The TURNER drain was removed. The patient is cleared for discharge. I have left the patient a p rescription for Ancef and Flagyl. The patient will need to arrange for office followup in 1 week fo r staple removal. Dictated By: WESTON GATES/JEANINE Conf#: [id number] DID#: [id number]
[2016-11-30] MEDS: POTASSIUM CHLORIDE (SR) 10 MEQ TAB PO SCH ×2 (10:06→13:23)
--- NOTE | 2016-11-30 12:41 | DS ---
DATE OF ADMISSION: 11/27/2016 DATE OF DISCHARGE: 11/30/2016 DISCHARGE DIAGNOSES: 1. Perforated diverticulitis spontaneously sealed off. 2. Status post diagnostic laparoscopy and TURNER drain placement. 3. History of hypertension. 4. Type 2 diabetes mellitus. 5. History of depression. DISCUSSION: This 36-year-old woman was hospitalized with acute abdominal pain. The patient was see n by Dr. Wliliam márquez in surgical consultation. The patient underwent a diagnostic laparoscopy and found to have a microperforation with diverticulitis which had spontaneously sealed off. TURNER drain was placed. Subsequently, the patient was continued on IV antibiotics. Clinically, she has done we ll. TURNER drain was removed by surgery. Clinically, she is stable and is being discharged home. DISCHARGE INSTRUCTIONS: DIET: Low sodium, ADA diet. ACTIVITY: As tolerated. CONDITION UPON DISCHARGE: Stable. FOLLOWUP: With Dr. William Unger. MEDICATIONS UPON DISCHARGE: The patient will be continued on oral antibiotics along with her home m edications. Dictated By: BRYCE BROOKS MD, MA/JEANINE Conf#: [id number] DID#: [id number]
--- NOTE | 2016-11-30 14:19 | PDOCDIS ---
Discharge Instructions DIAGNOSIS Discharge Diagnosis: Perforated diverticulitis. CONDITION Patient Condition: Stable HOME CARE INSTRUCTIONS: Special Diet: Carbohydrate controlled FOLLOW UP/APPOINTMENTS Appointments William Unger MD Specialty: General Surgery Office Address [address] [place] [address] Office OTHER ORDERS: Other Orders: 1. Take a carbohydrate controlled diet. 2. Take medications as per prescription. 3. Follow-up with Dr. Unger in 1 week. 4. Resume activities as tolerated. TAVON MENDOZA NP Nov 30, 2016 14:19
[2016-11-30] MEDS ORDERED: METR500T PO (14:20)
[2016-11-30] MEDS ORDERED: CEPH-443 PO (14:20)
== END 2016-11-30 16:28 | disposition home or self-care (01) | DRG 357 ==
LOC: E/R 03:57 → PP2 09:30
PROVIDERS: ADMIT Family Medicine; ATTEND Family Medicine
PROC: 0WJP4ZZ Inspection of Gastrointestinal Tract, Percutaneous Endoscopic Approach (ICD-10-PCS; principal; 2016-11-28 19:00)
DX: K57.20 Diverticulitis of large intestine with perforation and abscess without bleeding (principal); I10 Essential (primary) hypertension; E11.9 Type 2 diabetes mellitus without complications; F41.9 Anxiety disorder, unspecified
CPT/HCPCS: 36415; 71010; 74177; 76856; 80048; 80076; 81001; 81003; 82962; 83036; 85025; 85610; 85730; 87070; 87075; 87086; 87102; 87116; 93005; 96374; 96375; J0360; J1170; J1335; J1644; J1815; J2175; J2250; J2270; J2405; J2543; J2710; J3010; J3480; J7030; J7040; Q9967

== ENCOUNTER 2017-02-01 20:15 | Inpatient (IN) | payer BC ==
[~2017-02-01] VITALS: Ht 162.6 cm; Wt 81.5 kg
[~2017-02-01 20:15] MED LIST: BUSP10TA2 PO; CEPH-443 PO; CITA20TA11 PO; FURO20TA3 PO; METF500T4 PO; METR500T PO; VALS320T11 PO
[2017-02-01 20:19] VITALS: Ht 162.6 cm; Wt 81.5 kg
[2017-02-01] MEDS ORDERED: ONDANSETRON 4 MG INJ IV STA (21:24)
[2017-02-01] MEDS ORDERED: morphine 2 MG INJ IV STA (21:24)
[2017-02-01 22:26] LABS: ABNORMAL IP MESSAGE 1; HEMATOCRIT 39.4 % (37.0-47.0); HEMOGLOBIN 13.1 g/dl (12.0-16.0); MEAN CORPUSCULAR HEMOGLOBIN 33.1 pg (29.0-33.0); MEAN CORPUSCULAR HGB CONC 33.2 g/dl (32.0-37.0); MEAN CORPUSCULAR VOLUME 99.5 fl (82.0-101.0); MEAN PLATELET VOLUME 9.4 fl (7.4-10.4); PLATELET COUNT 292 10^3/UL (140-415); RED BLOOD COUNT 3.96 10^6/ul (4.20-5.40); RED CELL DISTRIBUTION WIDTH 13.3 % (11.5-14.5); WHITE BLOOD COUNT 13.5 10^3/ul (4.8-10.8)
[2017-02-01 22:33] LABS: ADD UMIC YES; UR ASCORBIC ACID NEGATIVE (NEGATIVE); UR BILIRUBIN (Dip) NEGATIVE (NEGATIVE); UR BLOOD (Dip) 1+ mg/dL (NEGATIVE); UR CLARITY CLEAR (CLEAR); UR COLOR STRAW (YELLOW); UR GLUCOSE (Dip) 3+ mg/dL (NEGATIVE); UR KETONES (Dip) TRACE mg/dL (NEGATIVE); UR LEUKOCYTE ESTERASE (Dip) NEGATIVE Leu/ul (NEGATIVE); UR NITRITE (Dip) NEGATIVE (NEGATIVE); UR RBC 1 /HPF (0-5); UR SPECIFIC GRAVITY (Dip) 1.037 (1.003-1.030); UR SQUAMOUS EPITHELIAL CELL FEW /HPF (FEW); UR TOTAL PROTEIN (Dip) NEGATIVE (NEGATIVE); UR UROBILINOGEN (Dip) NEGATIVE (NEGATIVE)
[2017-02-01 22:34] LABS: POSITIVE DIFF @See below
[2017-02-01 22:45] LABS: ALBUMIN 3.7 g/dl (3.3-4.9); ALBUMIN/GLOBULIN RATIO 1.32; BILIRUBIN,INDIRECT 0.4 mg/dl (0-1.1); BILIRUBIN,TOTAL 0.4 mg/dl (0.2-1.3); CREATININE 0.83 mg/dl (0.44-1.00); POTASSIUM 3.5 mmol/L (3.5-5.1); TOTAL PROTEIN 6.5 g/dl (6.1-8.1)
[2017-02-01] MEDS ORDERED: SOD CHLORIDE 0.9% 1,000 ML IV STA (22:50)
[2017-02-01] MEDS ORDERED: INSULIN LISPRO 100 UNIT/ML VIAL SC STA (22:52)
[2017-02-01] MEDS ORDERED: IOHEXOL 300MG/ML 150 ML BTL ONE (22:55)
[2017-02-01] MEDS ORDERED: SOD CHLORIDE 0.9% 100 ML ONE (22:55)
--- NOTE | 2017-02-01 23:57 | RADRPT ---
PROCEDURE: XR Chest. CLINICAL INDICATION: Dyspnea. TECHNIQUE: Single frontal view of the chest. COMPARISON: 11/27/2016 FINDINGS: Hypoinflated lungs and portable technique accentuate the cardiac silhouette. Mild vascular crowding at the left lung base. Findings are somewhat similar in appearance to the prior examination, given differences in plane film technique. The lungs are otherwise clear. The cardiomediastinal silhouett e is within normal limits. The lungs are clear. No signs of pleural fluid or pneumothorax are seen. The osseous structures and soft tissues are unremarkable. IMPRESSION: Hypoinflated lungs with mild vascular crowding at the left lung base. RPTAT: [facility] Physician Laura Date Time Electronically viewed and signed by Physician Laura on 02/01/2017 23:57 RS/
[2017-02-02] VITALS (8 sets, daily range): BP systolic 139–166; BP diastolic 79–112; PULSE 82–85; RESP 16–18; TEMP 98
--- NOTE | 2017-02-02 00:01 | ERD ---
ER Documentation Chief Complaint Date/Time DATE: 02/01/17 TIME: 23:56 Chief Complaint lower abd pain x 2 days, sob HPI 36-year-old female coming in complaining of left-sided sharp abdominal pain for the last 4 days. Patient has a history of perforated diverticulitis in the past. Patient states this feels the same as her previous episode. Patient is taking hydrochlorothiazide for fluid retention. Patient has not been taking medication. Patient states she has mild shortness of breath with lower leg swelling. Patient denies any chest pain. Denies fever. Denies change in urination or bowel movements. Has not taken medications for pain. Patient does have diabetes. ROS All systems reviewed and are negative except as per history of present illness. Medications Home Meds Active Scripts Metronidazole* (Flagyl*) 500 Mg Tablet, 500 MG PO Q8 for 7 Days, #21 TAB Prov:TAVON MENDOZA GEAR ROOM KEEPER 11/30/16 Cephalexin* (Keflex*) 500 Mg Capsule, 500 MG PO Q6, #28 CAP Prov:TAVON MENDOZA GEAR ROOM KEEPER 11/30/16 Reported Medications Citalopram Hydrobromide* (Celexa*) 20 Mg Tablet, 20 MG PO DAILY, #30 TAB 11/27/16 Buspirone Hcl* (Buspirone Hcl*) 10 Mg Tab, 10 MG PO BID, TAB 11/27/16 Valsartan* (Diovan*) 320 Mg Tablet, 320 MG PO DAILY, TAB 11/27/16 Furosemide* (Furosemide*) 20 Mg Tablet, 20 MG PO BID, #30 TAB 11/27/16 Metformin* (Glucophage*) 500 Mg Tab, 500 MG PO BID, #30 TAB 11/27/16 Allergies Allergies: Coded Allergies: No Known Allergy (Unverified , 11/27/16) PMhx/Soc History of Surgery: Yes (Egg Donation, D&Cx3, Diverticulitis w/ microperforation sealed off 11/28/16) Anesthesia Reaction: No Hx Neurological Disorder: No Hx Respiratory Disorders: No Hx Cardiac Disorders: Yes (HTN) Hx Psychiatric Problems: Yes (Depression, Anxiety, Psychological Episode 06/02) Hx Miscellaneous Medical Probl: Yes (diverticulitis sigmoid perforation w/ peritonitis 11/28/16, pre-DM) Hx Alcohol Use: No Hx Substance Use: No Hx Tobacco Use: No Smoking Status: Never smoker Physical Exam Vitals Physical Exam GENERAL: The patient is well-appearing, well-nourished, in no acute distress HEENT: Atraumatic. Conjunctivae are pink. Pupils equal, round, and reactive to light. There is no scleral icterus. Tympanic membranes clear bilaterally. Oropharynx clear. No nystagmus or photophobia. NECK: C-spine is soft and supple. There is no meningismus. There is no cervical lymphadenopathy. No JVD. No bruits. No goiter. CHEST: Clear to auscultation bilaterally. There are no rales, wheezes or rhonchi. HEART: Regular rate and rhythm. No murmurs, clicks, rubs or gallops. No S3 or S4. ABDOMEN:Soft, tender to left lower quadrant and distended. Good bowel sounds. No rebound or guarding. No gross peritonitis. No gross organomegaly or masses. No Dozier sign or McBurney point tenderness. BACK: No midline or flank tenderness. Results 24 hrs Laboratory Tests Test 02/01/17 21:56 02/01/17 22:00 02/01/17 23:26 White Blood Count 13.510^3/ul Red Blood Count 3.9610^6/ul Hemoglobin 13.1g/dl Hematocrit 39.4% Mean Corpuscular Volume 99.5fl Mean Corpuscular Hemoglobin 33.1pg Mean Corpuscular Hemoglobin Concent 33.2g/dl Red Cell Distribution Width 13.3% Platelet Count 43033^3/UL Mean Platelet Volume 9.4fl Neutrophils % % Lymphocytes % % Monocytes % % Eosinophils % % Basophils % % Nucleated Red Blood Cells % 0.0/100WBC Neutrophils # (Manual) 1210^3/ul Lymphocytes # 10^3/ul Monocytes # 10^3/ul Eosinophils # 10^3/ul Basophils # 10^3/ul Nucleated Red Blood Cells # 10^3/ul Urine Color STRAW Urine Clarity CLEAR Urine pH 6.0 Urine Specific [place] 1.037 Urine Ketones TRACEmg/dL Urine Nitrite NEGATIVEmg/dL Urine Bilirubin NEGATIVEmg/dL Urine Urobilinogen NEGATIVEmg/dL Urine Leukocyte Esterase NEGATIVELeu/ul Urine Microscopic RBC 1/HPF Urine Microscopic WBC 3/HPF Urine Squamous Epithelial Cells FEW/HPF Urine Hemoglobin 1+mg/dL Urine Glucose 3+mg/dL Urine Total Protein NEGATIVEmg/dl Sodium Level 132mmol/L Potassium Level 3.5mmol/L Chloride Level 94mmol/L Carbon Dioxide Level 28mmol/L Anion Gap 14 Blood Urea Nitrogen 21mg/dl Creatinine 0.83mg/dl Glucose Level 531mg/dl Calcium Level 10.0mg/dl Total Bilirubin 0.4mg/dl Direct Bilirubin 0.00mg/dl Indirect Bilirubin 0.4mg/dl Aspartate Amino Transf (AST/SGOT) 17IU/L Alanine Aminotransferase (ALT/SGPT) 43IU/L Alkaline Phosphatase 142IU/L B-Type Natriuretic Peptide 746PG/ML Total Protein 6.5g/dl Albumin 3.7g/dl Globulin 2.80g/dl Albumin/Globulin Ratio 1.32 Lipase 146U/L Serum HCG, Qualitative NEGATIVE Troponin I < 0.012ng/ml Bedside Glucose 440mg/dL Current Medications Medications (Trade) Dose Ordered Sig/Danyel Route PRN Reason Start Time Stop Time Status Last Admin Dose Admin Morphine Sulfate (morphine) 2 mg ONCE STAT IV 02/01/17 21:24 02/01/17 22:09 DC Ondansetron HCl 4 mg 4 mg ONCE STAT IV 02/01/17 21:24 02/01/17 22:09 DC Sodium Chloride (NS) 1,000 ml @ 1,000 mls/hr Q1H STAT IV 02/01/17 22:50 02/01/17 23:49 DC 02/01/17 23:33 Insulin Human Lispro (Humalog) 10 unit ONCE STAT SC 02/01/17 22:52 02/01/17 22:53 DC 02/01/17 23:32 IV Flush 10 ml 10 ml STK-MED ONCE .ROUTE 02/01/17 22:55 02/01/17 22:56 DC 02/01/17 23:44 Sodium Chloride (NS) 100 ml @ ud STK-MED ONCE .ROUTE 02/01/17 22:55 02/01/17 22:56 DC 02/01/17 23:44 Iohexol 150 ml 150 ml STK-MED ONCE .ROUTE 02/01/17 22:55 02/01/17 22:56 DC 02/01/17 23:44 Piperacillin Sod/ Tazobactam Sod (Zosyn 3.375gm/ 100 ml (Pmx)) 100 ml @ 200 mls/hr ONCE ONCE IVPB 02/02/17 01:30 02/02/17 01:59 DC 02/02/17 02:17 Procedures/MDM ER course: Patient has elevated glucose. Case was discussed with Dr. Castaneda. Patient was started on 1 L of fluids, and 10 subcu Humalog. I discussed with Dr. Castaneda the use of 1 L of normal saline given patient does have lower leg swelling and elevated BNP. He confirmed that it was okay to give patient 1 L fluid even though she has lower leg swelling. Patient is not dyspneic while talking. Patient declined pain medication. EKG: Sinus rhythm. 75 bpm. No STEMI. Possible left axis. No arrhythmias. Reviewed and signed off by Dr. Schultz. Patient: RHINA BRUNO : 1980 Age: 36 Sex: F MR #: [id number] DOS: 02/01/172123 Ordering MD: KENDY MAYERS PA-C Location: [facility] Room/Bed: PROCEDURE: CT Abdomen and pelvis with contrast. CLINICAL INDICATION: Abdominal pain. TECHNIQUE: CT scan of the abdomen and pelvis with contrast was performed on a multi-detector high-resolution CT scanner. The patient was scanned following the uncomplicated administration of 100 cc of Omnipaque 300 intravenous contrast. Coronal and sagittal reformatted images were obtained from the axial source images. Images were reviewed on a high-resolution PACS workstation. One or more of the following dose reduction techniques were used: - Automated exposure control. - Adjustment of the mA and/or kV according to patient size. - Use of iterative reconstruction technique. Exam CTD/vol = 12.97 mGy. Total exam DLP = 837.35 mGy-cm. COMPARISON: 11/27/2016. FINDINGS: Evaluation of the lung bases demonstrates mild bibasilar atelectasis. Abdomen: The liver is normal in size. There is no focal mass or dilatation of the biliary tree. The gallbladder is not distended. The spleen, pancreas and bilateral adrenal glands are within normal limits. Bilateral kidneys are normal in size with symmetric enhancement. There is no focal mass, hydronephrosis or hydroureter. There is no retroperitoneal adenopathy. The abdominal aorta is of normal caliber. There is moderate retained stool within the colon. There is mild stranding and free fluid within the anterior mid to lower abdomen. There is mild free air suggesting viscus perforation. There is no bowel obstruction. A normal appendix is identified. Again demonstrated is a diverticuli of the mid sigmoid colon. Pelvis: The bladder is unremarkable. The uterus and adnexa are within normal limits. There is mild pelvic stranding and trace free fluid. There is no significant pelvic adenopathy. Evaluation of the osseous structures demonstrates no suspicious lytic or blastic lesion. IMPRESSION: Mild stranding, free fluid and free air within the abdomen suggestive of viscus perforation, decreased compared with 11/27/2016. The site of perforation could be from a diverticuli of the mid sigmoid colon. Mild bibasilar atelectasis. A call report was made to the ED nurse (Karen) at 12:18 a.m. Patient: RHINA BRUNO : 1980 Age: 36 Sex: F MR #: [id number] DOS: 02/01/172123 Ordering MD: KENDY MAYERS PA-C Location: [facility] Room/Bed: PROCEDURE: XR Chest. CLINICAL INDICATION: Dyspnea. TECHNIQUE: Single frontal view of the chest. COMPARISON: 11/27/2016 FINDINGS: Hypoinflated lungs and portable technique accentuate the cardiac silhouette. Mild vascular crowding at the left lung base. Findings are somewhat similar in appearance to the prior examination, given differences in plane film technique. The lungs are otherwise clear. The cardiomediastinal silhouette is within normal limits. The lungs are clear. No signs of pleural fluid or pneumothorax are seen. The osseous structures and soft tissues are unremarkable. IMPRESSION: Hypoinflated lungs with mild vascular crowding at the left lung base. MDM: Patient is stable and will be admitted. This case was passed on to AURELIANO Kenyon NP, PA-C Feb 02, 2017 00:01
--- NOTE | 2017-02-02 00:20 | RADRPT ---
PROCEDURE: CT Abdomen and pelvis with contrast. CLINICAL INDICATION: Abdominal pain. TECHNIQUE: CT scan of the abdomen and pelvis with contrast was performed on a multi-detector high -resolution CT scanner. The patient was scanned following the uncomplicated administration of 100 c c of Omnipaque 300 intravenous contrast. Coronal and sagittal reformatted images were obtained from the axial source images. Images were reviewed on a high-resolution PACS workstation. One or more of the following dose reduction techniques were used: - Automated exposure control. - Adjustment of the mA and/or kV according to patient size. - Use of iterative reconstruction technique. Exam CTD/vol = 12.97 mGy. Total exam DLP = 837.35 mGy-cm. COMPARISON: 11/27/2016. FINDINGS: Evaluation of the lung bases demonstrates mild bibasilar atelectasis. Abdomen: The liver is normal in size. There is no focal mass or dilatation of the biliary tree. T he gallbladder is not distended. The spleen, pancreas and bilateral adrenal glands are within kin l limits. Bilateral kidneys are normal in size with symmetric enhancement. There is no focal mass, hydronephrosis or hydroureter. There is no retroperitoneal adenopathy. The abdominal aorta is of normal caliber. There is moderate retained stool within the colon. There is mild stranding and free fluid within the anterior mid to lower abdomen. There is mild free air suggesting viscus perforation. There is no b owel obstruction. A normal appendix is identified. Again demonstrated is a diverticuli of the mid sigmoid colon. Pelvis: The bladder is unremarkable. The uterus and adnexa are within normal limits. There is mil d pelvic stranding and trace free fluid. There is no significant pelvic adenopathy. Evaluation of the osseous structures demonstrates no suspicious lytic or blastic lesion. IMPRESSION: Mild stranding, free fluid and free air within the abdomen suggestive of viscus perforation, [facility] ed compared with 11/27/2016. The site of perforation could be from a diverticuli of the mid sigmoid colon. Mild bibasilar atelectasis. A call report was made to the ED nurse (Karen) at 12:18 a.m. .Nghia Berger MD, MD Date Time Electronically viewed and signed by .Nghia Berger MD, on 02/02/2017 00:19 .T/
[2017-02-02] MEDS ORDERED: PIPER-TAZO 3.375 GM IV (PMX) 100 ML IVPB ONE (01:30)
--- NOTE | 2017-02-02 04:19 | QN ---
Documentation Comment The patient is a 36-year-old female, presenting to the ER because of abdominal pain for 2 days, the pain is worse with movement. The abdominal pain is diffuse and moderate. She had similar symptoms previously in November 30, 2069 where she was admitted for acute perforated diverticulitis. She denies fever, chills, neck pain, chest pain, dyspnea, dysuria, diarrhea, constipation. She does not smoke or drink She was initially seen by the PA then sent to ED 2 for further evaluation Past medical history: Hypertension, depression, anxiety, diabetes mellitus Past surgical history: None Vital signs reviewed Const: No acute distress. Head: Atraumatic. Eyes: Normal Conjunctiva. ENT: Normal External Ears, Nose and Mouth. Neck: Full range of motion. No meningismus. Resp: Clear to auscultation bilaterally. Cardio: Regular tachycardic Abd: Soft, non distended, normal bowel sounds, diffuse abdominal mild tenderness, more tenderness at the left lower quadrant, no rigidity, rebound, CVA tenderness Skin: No petechiae or rashes. Back: No midline or flank tenderness. Ext: No cyanosis, or edema. Neur: Awake and alert. No focal deficit Psych: Normal Mood and Affect. [place] [address] Radiology Main Line: [phone] DIAGNOSTIC IMAGING REPORT Patient: RHINA BRUNO : 1980 Age: 36 Sex: F MR #: [id number] DOS: 02/01/172123 Ordering MD: KENDY MAYERS PA-C [facility] Room/Bed: PROCEDURE: CT Abdomen and pelvis with contrast. CLINICAL INDICATION: Abdominal pain. TECHNIQUE: CT scan of the abdomen and pelvis with contrast was performed on a multi-detector high-resolution CT scanner. The patient was scanned following the uncomplicated administration of 100 cc of Omnipaque 300 intravenous contrast. Coronal and sagittal reformatted images were obtained from the axial source images. Images were reviewed on a high-resolution PACS workstation. One or more of the following dose reduction techniques were used: - Automated exposure control. - Adjustment of the mA and/or kV according to patient size. - Use of iterative reconstruction technique. Exam CTD/vol = 12.97 mGy. Total exam DLP = 837.35 mGy-cm. COMPARISON: 11/27/2016. FINDINGS: Evaluation of the lung bases demonstrates mild bibasilar atelectasis. Abdomen: The liver is normal in size. There is no focal mass or dilatation of the biliary tree. The gallbladder is not distended. The spleen, pancreas and bilateral adrenal glands are within normal limits. Bilateral kidneys are normal in size with symmetric enhancement. There is no focal mass, hydronephrosis or hydroureter. There is no retroperitoneal adenopathy. The abdominal aorta is of normal caliber. There is moderate retained stool within the colon. There is mild stranding and free fluid within the anterior mid to lower abdomen. There is mild free air suggesting viscus perforation. There is no bowel obstruction. A normal appendix is identified. Again demonstrated is a diverticuli of the mid sigmoid colon. Pelvis: The bladder is unremarkable. The uterus and adnexa are within normal limits. There is mild pelvic stranding and trace free fluid. There is no significant pelvic adenopathy. Evaluation of the osseous structures demonstrates no suspicious lytic or blastic lesion. IMPRESSION: Mild stranding, free fluid and free air within the abdomen suggestive of viscus perforation, decreased compared with 11/27/2016. The site of perforation could be from a diverticuli of the mid sigmoid colon. Mild bibasilar atelectasis. A call report was made to the ED nurse (Karen) at 12:18 a.m. .Nghia Berger MD, MD Date Time Electronically viewed and signed by .Nghia Berger MD, MD on 02/02/2017 00:19 .T/ CC: AURELIANO MAYERS PA-C [place] [address] Radiology Main Line: [phone] DIAGNOSTIC IMAGING REPORT Patient: RHINA BRUNO : 1980 Age: 36 Sex: F MR #: [id number] DOS: 02/01/17 212 Ordering MD: KENDY MAYERS PA-C [facility] Room/Bed: PROCEDURE: XR Chest. CLINICAL INDICATION: Dyspnea. TECHNIQUE: Single frontal view of the chest. COMPARISON: 11/27/2016 FINDINGS: Hypoinflated lungs and portable technique accentuate the cardiac silhouette. Mild vascular crowding at the left lung base. Findings are somewhat similar in appearance to the prior examination, given differences in plane film technique. The lungs are otherwise clear. The cardiomediastinal silhouette is within normal limits. The lungs are clear. No signs of pleural fluid or pneumothorax are seen. The osseous structures and soft tissues are unremarkable. IMPRESSION: Hypoinflated lungs with mild vascular crowding at the left lung base. RPTAT: [facility] Physician Laura Date Time Electronically viewed and signed by Physician Laura on 02/01/2017 23:57 RS/ CC: AURELIANO MAYERS PA-C MEDICAL MAKING DECISION: The patient is a 36-year-old female, presenting with acute perforated diverticulitis, acute diabetic hyperglycemia. She was treated with 1 L normal saline, Humalog 10 units sc, Zosyn IV for acute perforated diverticulitis, morphine 2 mg IV for pain, Zofran 4 mg IV for nausea with good response Consultation: I discussed the patient with the on-call general surgeon Dr. Serrano at 1:25 AM who was made aware that her surgeon Dr. Unger was out of town , the lab, the treatment, the patient condition. He accepted the consult The differential diagnoses considered include but are not limited to cholelithiasis, cholecystitis, cystitis, pancreatitis, hepatitis, gastritis, peptic ulcer disease, gastric ulcer, appendicitis, diverticulitis, cholangitis, choledocholithiasis, partial small bowel obstruction, DKA, HHS. Diagnostic impression #1 acute perforated diverticulitis #2 acute diabetic hyperglycemia Disposition: I discussed the findings with the patient. I discussed the patient with her physician Dr. Sanchez who was made aware of the lab, the treatment, the patient condition and my discussion with the general surgeon. The patient is admitted to [facility] at 1:45 AM HANY TENORIO MD Feb 02, 2017 04:19
[2017-02-02] MEDS ORDERED: SOD CHLORIDE 0.45% 1,000 ML IV SCH (06:00)
[2017-02-02] MEDS ORDERED: ONDANSETRON 4 MG INJ IV PRN (06:00)
[2017-02-02] MEDS: hydrALAzine 20 MG INJ IV PRN ×2 (06:53→20:05)
[2017-02-02 06:54] LABS: ABNORMAL IP MESSAGE 1; BASOPHILS % 0.2 % (0.0-2.0); EOSINOPHILS % 0.1 % (0.0-7.0); HEMATOCRIT 32.9 % (37.0-47.0); HEMOGLOBIN 10.8 g/dl (12.0-16.0); LYMPHOCYTES # 0.8 10^3/ul (0.8-2.9); MEAN CORPUSCULAR HEMOGLOBIN 32.6 pg (29.0-33.0); MEAN CORPUSCULAR HGB CONC 32.8 g/dl (32.0-37.0); MEAN CORPUSCULAR VOLUME 99.4 fl (82.0-101.0); MEAN PLATELET VOLUME 9.5 fl (7.4-10.4); MONOCYTE # 0.6 10^3/ul (0.3-0.9); MONOCYTES % 5.5 % (0.0-11.0); NEUTROPHILS % 80.6 % (39.0-77.0); PLATELET COUNT 247 10^3/UL (140-415); RED BLOOD COUNT 3.31 10^6/ul (4.20-5.40); RED CELL DISTRIBUTION WIDTH 13.6 % (11.5-14.5); WHITE BLOOD COUNT 10.4 10^3/ul (4.8-10.8)
[2017-02-02 06:55] LABS: POSITIVE DIFF @See below
[2017-02-02] MEDS: PIPER-TAZO 3.375 GM IV (PMX) 100 ML IVPB SCH ×3 (06:56→18:14)
[2017-02-02] MEDS ORDERED: GLUCOSE GEL 15 GRAM TUBE BUCCAL PRN (07:00)
[2017-02-02] MEDS ORDERED: DEXTROSE 50% 50 ML SYRINGE IV PRN ×2 (07:00)
[2017-02-02] MEDS ORDERED: GLUCOSE GEL 15 GRAM TUBE PO PRN ×2 (07:00)
[2017-02-02] MEDS ORDERED: GLUCAGON 1 MG INJ IM PRN (07:00)
[2017-02-02 07:11] LABS: ALBUMIN/GLOBULIN RATIO 1.11; BILIRUBIN,INDIRECT 0.2 mg/dl (0-1.1); BILIRUBIN,TOTAL 0.2 mg/dl (0.2-1.3); CALCIUM 8.5 mg/dl (8.4-10.2); CHOL/HDL RATIO 5.1 RATIO; CREATININE 0.49 mg/dl (0.44-1.00); POTASSIUM 3.1 mmol/L (3.5-5.1); TOTAL PROTEIN 5.7 g/dl (6.1-8.1)
[2017-02-02] MEDS ORDERED: INSULIN ASPART [NOVOLOG] 3 ML PEN SC SCH ×2 (07:50→13:00)
[2017-02-02] MEDS ORDERED: CLONIDINE 0.2 MG/24 HR PATCH TRANSDERM SCH (08:00)
[2017-02-02] MEDS: INSULIN GLARGINE [LANtus] 3 ML PEN SC SCH (10:13)
[2017-02-02] MEDS ORDERED: DEXTROSE 5%-0.45% NACL 1,000 ML IV SCH (10:30)
--- NOTE | 2017-02-02 11:36 | HP ---
Date/Time of Note Date/Time of Note DATE: 02/02/17 TIME: 11:18 Assessment/Plan VTE Prophylaxis VTE Prophylaxis Intervention: SCD's Lines/Catheters IV Catheter Type (from Nrsg): Peripheral IV Assessment/Plan Assessment/Plan -Perforated viscous, continue IV fluids antibiotics and keep patient n.p.o. Dr. Kong is following in general surgery consultation. -Diabetes mellitus, will check hemoglobin A1c continue a Lantus and NovoLog with Accu-Chek every 4 hours. -Hypertension, continue hydralazine as needed for systolic blood pressure above 170, clonidine patch while patient is n.p.o. -Depression -Obesity with BMI of 30.8 Further recommendations based on clinical course. Plan of care discussed with Dr. Sanchez. HPI/ROS Admit Date/Time Admit Date/Time Feb 02, 2017 at 01:54 Hx of Present Illness The patient is a 36-year-old female with past medical history of diabetes, hypertension, depression, obesity. Patient was previously admitted in November of this year for diverticulitis with microperforation of sigmoid colon, at that time patient underwent diagnostic laparoscopy with sigmoid colon was sealed by Dr. Unger. Patient recovered and was able to tolerate regular diet and had a bowel movement until couple of days ago. Patient stated that she developed left lower quadrant pain however she waited to come to the hospital because of her daughter's birthday on . Patient presented to the emergency room and underwent CT of the abdomen and pelvis which revealed mild stranding, free fluid and free air within the abdomen suggestive of viscus perforation. Patient denies any fever, chills denies chest pain denies shortness of breath. Patient's blood sugar was noted to be elevated to 400, patient was giving IV fluids with some improvement in blood sugar. ROS 12 point review of system is negative unless what mentioned in HPI PMH/Family/Social Past Medical History Depression Medical History: diabetes, hypertension Past Surgical History Status post DIC in 2014, abortions*3, status post diagnostic laparoscopy for diverticulitis with microperforation with placement and subsequent removal of drain. Family History Significant Family History: cancer (Colon cancer in patient's grandmother), diabetes Social History Alcohol Use: other (Former drinker) Smoking Status: Never smoker Drug Use: none Exam/Review of Systems Vital Signs Vitals Vital Signs Date Time Temp Pulse Resp B/P Pulse Ox O2 Delivery O2 Flow Rate FiO2 02/02/17 06:59 85 16 159/109 02/02/17 06:57 98.0 96 Room Air Intake and Output 02/01/17 02/01/17 02/02/17 14:59 22:59 06:59 Intake Total 0 ml Output Total 300 ml Balance -300 ml Exam Constitutional: alert, oriented Psych: no complaints Eyes: nl conjunctiva ENMT: nl external ears & nose Neck: supple Respiratory: normal air movement Cardiovascular: nl pulses Gastrointestinal: distended, soft, tender Musculoskeletal: nl extremities to inspection Extremities: normal pulses Neurological: nl mental status Skin: nl turgor Labs Result Diagram: 02/02/1762502/02/17625 Medications Medications Current Medications Insulin Glargine (Lantus) 15 unit DAILY@08 SC Last administered on 02/02/17 10 :13; Admin Dose 15 UNIT; Start 02/02/17 at 08:00 Ondansetron HCl (Zofran Inj) 4 mg Q6H PRN IV NAUSEA AND/OR VOMITING; Start at 06:00 Morphine Sulfate 2 mg 2 mg Q3 PRN IV PAIN; Start 02/02/17 at 06:00 Piperacillin Sod/ Tazobactam Sod (Zosyn 3.375gm/ 100 ml (Pmx)) 100 ml @ 200 mls /hr Q6 IVPB Last administered on 02/02/17 06:56; Admin Dose 200 MLS/HR; Start 02/02/17 at 06:00 Clonidine HCl (Catapres-Tts 2 Patch) 1 patch Q7D TRANSDERM Last administered on 02/02/17 09:37; Admin Dose 1 PATCH; Start 02/02/17 at 08:00 Hydralazine HCl (Apresoline) 10 mg Q4H PRN IV SBP >160 Last administered on 06:53; Admin Dose 10 MG; Start 02/02/17 at 06:00 Miscellaneous Information 1 ea NOTE XX ; Start 02/02/17 at 07:00 Glucose (Glutose) 15 gm Q15M PRN PO DECREASED GLUCOSE; Start 02/02/17 at 07:00 Glucose (Glutose) 22.5 gm Q15M PRN PO DECREASED GLUCOSE; Start 02/02/17 at 07: 00 Dextrose (D50w Syringe) 25 ml Q15M PRN IV DECREASED GLUCOSE; Start 02/02/17 at 07:00 Dextrose (D50w Syringe) 50 ml Q15M PRN IV DECREASED GLUCOSE; Start 02/02/17 at 07:00 Glucagon (Glucagen) 1 mg Q15M PRN IM DECREASED GLUCOSE; Start 02/02/17 at 07:00 Glucose 15 gm 15 gm Q15M PRN BUCCAL DECREASED GLUCOSE; Start 02/02/17 at 07:00 Dextrose/Sodium Chloride (D5-1/2ns) 1,000 ml @ 70 mls/hr [id number] IV Last administered on 02/02/17t 10:48; Admin Dose 70 MLS/HR; Start 02/02/17 at 10:30 Insulin Aspart (Novolog Insulin Pen) (Adult SC Insulin - Moder... Q4 SC ; Start 02/02/17 at 13:00 DAYA W[place] Feb 02, 2017 11:29
[2017-02-02] MEDS ORDERED: hydrALAzine 20 MG INJ IV PRN (12:00)
--- NOTE | 2017-02-02 12:02 | CONS ---
Date/Time of Note Date/Time of Note DATE: 02/02/17 TIME: 12:00 Assessment/Plan Assessment/Plan Additional Assessment/Plan 36 yo with obesity, DM, now perforated viscus - had recent surgery - tolerated well - no indication for pre-op cardiac testing - OK to proceed as needed to repair perforation. Full note dictated # [id number] Consultation Date/Type/Reason Admit Date/Time Feb 02, 2017 at 01:54 Initial Consult Date Exam/Review of Systems Vital Signs Vitals Vital Signs Date Time Temp Pulse Resp B/P Pulse Ox O2 Delivery O2 Flow Rate FiO2 02/02/17 06:59 85 16 159/109 02/02/17 06:57 98.0 96 Room Air Intake and Output 02/01/17 02/01/17 02/02/17 15:00 23:00 07:00 Intake Total 0 ml Output Total 300 ml Balance -300 ml Results Result Diagram: 02/02/17 0626 02/02/17 0626 Results 24 hrs Laboratory Tests Test 02/01/17 21:56 02/01/17 22:00 02/01/17 23:26 02/02/17 04:33 White Blood Count 13.5 #H Red Blood Count 3.96 L Hemoglobin 13.1 Hematocrit 39.4 Mean Corpuscular Volume 99.5 Mean Corpuscular Hemoglobin 33.1 H Mean Corpuscular Hemoglobin Concent 33.2 Red Cell Distribution Width 13.3 Platelet Count 292 Mean Platelet Volume 9.4 Neutrophils % Lymphocytes % Monocytes % Eosinophils % Basophils % Nucleated Red Blood Cells % 0.0 Neutrophils # (Manual) 12 H Lymphocytes # Monocytes # Eosinophils # Basophils # Nucleated Red Blood Cells # Urine Color STRAW Urine Clarity CLEAR Urine pH 6.0 Urine Specific [place] 1.037 H Urine Ketones TRACE A Urine Nitrite NEGATIVE Urine Bilirubin NEGATIVE Urine Urobilinogen NEGATIVE Urine Leukocyte Esterase NEGATIVE Urine Microscopic RBC 1 Urine Microscopic WBC 3 Urine Squamous Epithelial Cells FEW Urine Hemoglobin 1+ H Urine Glucose 3+ H Urine Total Protein NEGATIVE Sodium Level 132 L Potassium Level 3.5 Chloride Level 94 L Carbon Dioxide Level 28 Anion Gap 14 Blood Urea Nitrogen 21 H Creatinine 0.83 Glucose Level 531 *H Calcium Level 10.0 Total Bilirubin 0.4 Direct Bilirubin 0.00 Indirect Bilirubin 0.4 Aspartate Amino Transf (AST/SGOT) 17 Alanine Aminotransferase (ALT/SGPT) 43 Alkaline Phosphatase 142 H B-Type Natriuretic Peptide 746 H Total Protein 6.5 Albumin 3.7 Globulin 2.80 Albumin/Globulin Ratio 1.32 Lipase 146 Serum HCG, Qualitative NEGATIVE Troponin I < 0.012 Bedside Glucose 440 *H 265 H Test 02/02/17 06:26 02/02/17 09:21 White Blood Count 10.4 # Red Blood Count 3.31 L Hemoglobin 10.8 L Hematocrit 32.9 L Mean Corpuscular Volume 99.4 Mean Corpuscular Hemoglobin 32.6 Mean Corpuscular Hemoglobin Concent 32.8 Red Cell Distribution Width 13.6 Platelet Count 247 Mean Platelet Volume 9.5 Neutrophils % 80.6 H Lymphocytes % 8.0 L Monocytes % 5.5 Eosinophils % 0.1 Basophils % 0.2 Nucleated Red Blood Cells % 0.0 Neutrophils # (Manual) 8 H Lymphocytes # 0.8 Monocytes # 0.6 Eosinophils # 0.0 Basophils # 0.0 Nucleated Red Blood Cells # 0.0 Sodium Level 142 Potassium Level 3.1 L Chloride Level 102 Carbon Dioxide Level 28 Anion Gap 15 Blood Urea Nitrogen 16 Creatinine 0.49 Glucose Level 238 #H Hemoglobin A1c 10.4 H Calcium Level 8.5 Total Bilirubin 0.2 Direct Bilirubin 0.00 Indirect Bilirubin 0.2 Aspartate Amino Transf (AST/SGOT) 20 Alanine Aminotransferase (ALT/SGPT) 44 Alkaline Phosphatase 88 Total Protein 5.7 L Albumin 3.0 L Globulin 2.70 Albumin/Globulin Ratio 1.11 Triglycerides Level 89 Cholesterol Level 124 LDL Cholesterol, Calculated 82 HDL Cholesterol 24 L Cholesterol/HDL Ratio 5.1 Bedside Glucose 230 H Medications Medications Current Medications Insulin Glargine (Lantus) 15 unit DAILY@08 SC Last administered on 02/02/17 10 :13; Admin Dose 15 UNIT; Start 02/02/17 at 08:00 Ondansetron HCl (Zofran Inj) 4 mg Q6H PRN IV NAUSEA AND/OR VOMITING; Start at 06:00 Morphine Sulfate 2 mg 2 mg Q3 PRN IV PAIN; Start 02/02/17 at 06:00 Piperacillin Sod/ Tazobactam Sod (Zosyn 3.375gm/ 100 ml (Pmx)) 100 ml @ 200 mls /hr Q6 IVPB Last administered on 02/02/17 06:56; Admin Dose 200 MLS/HR; Start 02/02/17 at 06:00 Clonidine HCl (Catapres-Tts 2 Patch) 1 patch Q7D TRANSDERM Last administered on 02/02/17 09:37; Admin Dose 1 PATCH; Start 02/02/17 at 08:00 Hydralazine HCl (Apresoline) 10 mg Q4H PRN IV SBP >160 Last administered on 06:53; Admin Dose 10 MG; Start 02/02/17 at 06:00 Miscellaneous Information 1 ea NOTE XX ; Start 02/02/17 at 07:00 Glucose (Glutose) 15 gm Q15M PRN PO DECREASED GLUCOSE; Start 02/02/17 at 07:00 Glucose (Glutose) 22.5 gm Q15M PRN PO DECREASED GLUCOSE; Start 02/02/17 at 07: 00 Dextrose (D50w Syringe) 25 ml Q15M PRN IV DECREASED GLUCOSE; Start 02/02/17 at 07:00 Dextrose (D50w Syringe) 50 ml Q15M PRN IV DECREASED GLUCOSE; Start 02/02/17 at 07:00 Glucagon (Glucagen) 1 mg Q15M PRN IM DECREASED GLUCOSE; Start 02/02/17 at 07:00 Glucose 15 gm 15 gm Q15M PRN BUCCAL DECREASED GLUCOSE; Start 02/02/17 at 07:00 Dextrose/Sodium Chloride (D5-1/2ns) 1,000 ml @ 70 mls/hr [id number] IV Last administered on 02/02/17 10:48; Admin Dose 70 MLS/HR; Start 02/02/17 at 10:30 Insulin Aspart (Adult SC Insulin - Moder... Q4 SC ; Start 02/02/17 at 13:00 Potassium Chloride/Dextrose/ Sod Cl (D5-1/2ns + KCl 20 Meq) 1,000 ml @ 70 mls/ hr [id number] IV ; Start 02/02/17 at 12:00 Hydralazine HCl (Apresoline) 10 mg Q6H PRN IV SBP>170; Start 02/02/17 at 12:00 Clonidine HCl (Catapres-Tts 1 Patch) 1 patch Q7D TRANSDERM ; Start 02/02/17 at 13:00 ILENE DONNELLY MD Feb 02, 2017 12:02
[2017-02-02] MEDS: D5W-0.45 NACL + KCL 20 MEQ 1,000 ML IV SCH (12:26)
[2017-02-02] MEDS ORDERED: CLONIDINE 0.1 MG/24 HR PATCH TRANSDERM SCH (13:00)
[2017-02-02] MEDS: Insulin NOVOLOG SS MODERATE Algorithm(NPO/TPN/ENTERAL FEEDS) SC SCH ×3 (13:11→21:00)
[2017-02-02] MEDS: CITALOPRAM 20 MG TAB PO SCH (15:00)
--- NOTE | 2017-02-02 15:59 | CONS ---
Date/Time of Note Date/Time of Note DATE: 02/02/17 TIME: 15:54 Assessment/Plan Assessment/Plan Additional Assessment/Plan Diverticulitis with microperforation, recurrent #1 IV fluid #2 n.p.o. #3 antibiotic #4 should respond to conservative therapy. However, if worsens or persists may require surgery or repeat CT #5 recommend elective colon resection in 4-6 weeks if symptoms resolve Consultation Date/Type/Reason Admit Date/Time Feb 02, 2017 at 01:54 Date of Consultation: Feb 02, 2017 Hx of Present Illness The patient is a 36-year-old female with 2 days of left lower quadrant abdominal pain. Suddenly and has persisted. She had a prior episode 2 months ago where she required a laparoscopy. She felt that the symptoms are similar presented to the ER. Psychological: no complaints Past Medical History Medical History: diabetes, hypertension, other (Depression and obesity) Past Surgical History Past Surgical Hx: other (Diagnostic laparoscopy 2 months ago, 3) Social History Alcohol Use: none (Former drinker) Smoking Status: Never smoker Drug Use: none Exam/Review of Systems Vital Signs Vitals Vital Signs Date Time Temp Pulse Resp B/P Pulse Ox O2 Delivery O2 Flow Rate FiO2 02/02/17 14:28 98.1 85 18 160/101 98 02/02/17 06:57 Room Air Intake and Output 02/01/17 02/01/17 02/02/17 15:00 23:00 07:00 Intake Total 0 ml Output Total 300 ml Balance -300 ml Exam Constitutional: alert, obese, oriented, well developed Psych: no complaints Head: atraumatic, normocephalic Eyes: nl conjunctiva ENMT: nl external ears & nose Neck: supple Respiratory: clear to auscultation Cardiovascular: regular rate and rhythm Gastrointestinal: other (Significant left lower quadrant tenderness), soft Extremities: normal pulses Neurological: [employer] II-XII intact Results Result Diagram: 02/02/17 0626 02/02/17 0626 Results 24 hrs Laboratory Tests Test 02/01/17 21:56 02/01/17 22:00 02/01/17 23:26 02/02/17 04:33 White Blood Count 13.5 #H Red Blood Count 3.96 L Hemoglobin 13.1 Hematocrit 39.4 Mean Corpuscular Volume 99.5 Mean Corpuscular Hemoglobin 33.1 H Mean Corpuscular Hemoglobin Concent 33.2 Red Cell Distribution Width 13.3 Platelet Count 292 Mean Platelet Volume 9.4 Neutrophils % Lymphocytes % Monocytes % Eosinophils % Basophils % Nucleated Red Blood Cells % 0.0 Neutrophils # (Manual) 12 H Lymphocytes # Monocytes # Eosinophils # Basophils # Nucleated Red Blood Cells # Urine Color STRAW Urine Clarity CLEAR Urine pH 6.0 Urine Specific [place] 1.037 H Urine Ketones TRACE A Urine Nitrite NEGATIVE Urine Bilirubin NEGATIVE Urine Urobilinogen NEGATIVE Urine Leukocyte Esterase NEGATIVE Urine Microscopic RBC 1 Urine Microscopic WBC 3 Urine Squamous Epithelial Cells FEW Urine Hemoglobin 1+ H Urine Glucose 3+ H Urine Total Protein NEGATIVE Sodium Level 132 L Potassium Level 3.5 Chloride Level 94 L Carbon Dioxide Level 28 Anion Gap 14 Blood Urea Nitrogen 21 H Creatinine 0.83 Glucose Level 531 *H Calcium Level 10.0 Total Bilirubin 0.4 Direct Bilirubin 0.00 Indirect Bilirubin 0.4 Aspartate Amino Transf (AST/SGOT) 17 Alanine Aminotransferase (ALT/SGPT) 43 Alkaline Phosphatase 142 H B-Type Natriuretic Peptide 746 H Total Protein 6.5 Albumin 3.7 Globulin 2.80 Albumin/Globulin Ratio 1.32 Lipase 146 Serum HCG, Qualitative NEGATIVE Troponin I < 0.012 Bedside Glucose 440 *H 265 H Test 02/02/17 06:26 02/02/17 09:21 02/02/17 13:03 White Blood Count 10.4 # Red Blood Count 3.31 L Hemoglobin 10.8 L Hematocrit 32.9 L Mean Corpuscular Volume 99.4 Mean Corpuscular Hemoglobin 32.6 Mean Corpuscular Hemoglobin Concent 32.8 Red Cell Distribution Width 13.6 Platelet Count 247 Mean Platelet Volume 9.5 Neutrophils % 80.6 H Lymphocytes % 8.0 L Monocytes % 5.5 Eosinophils % 0.1 Basophils % 0.2 Nucleated Red Blood Cells % 0.0 Neutrophils # (Manual) 8 H Lymphocytes # 0.8 Monocytes # 0.6 Eosinophils # 0.0 Basophils # 0.0 Nucleated Red Blood Cells # 0.0 Sodium Level 142 Potassium Level 3.1 L Chloride Level 102 Carbon Dioxide Level 28 Anion Gap 15 Blood Urea Nitrogen 16 Creatinine 0.49 Glucose Level 238 #H Hemoglobin A1c 10.4 H Calcium Level 8.5 Total Bilirubin 0.2 Direct Bilirubin 0.00 Indirect Bilirubin 0.2 Aspartate Amino Transf (AST/SGOT) 20 Alanine Aminotransferase (ALT/SGPT) 44 Alkaline Phosphatase 88 Total Protein 5.7 L Albumin 3.0 L Globulin 2.70 Albumin/Globulin Ratio 1.11 Triglycerides Level 89 Cholesterol Level 124 LDL Cholesterol, Calculated 82 HDL Cholesterol 24 L Cholesterol/HDL Ratio 5.1 Bedside Glucose 230 H 178 Medications Medications Current Medications Insulin Glargine (Lantus) 15 unit DAILY@08 SC Last administered on 02/02/17 10 :13; Admin Dose 15 UNIT; Start 02/02/17 at 08:00 Ondansetron HCl (Zofran Inj) 4 mg Q6H PRN IV NAUSEA AND/OR VOMITING; Start at 06:00 Morphine Sulfate 2 mg 2 mg Q3 PRN IV PAIN; Start 02/02/17 at 06:00 Piperacillin Sod/ Tazobactam Sod (Zosyn 3.375gm/ 100 ml (Pmx)) 100 ml @ 200 mls /hr Q6 IVPB Last administered on 02/02/17 12:19; Admin Dose 200 MLS/HR; Start 02/02/17 at 06:00 Hydralazine HCl (Apresoline) 10 mg Q4H PRN IV SBP >160 Last administered on 06:53; Admin Dose 10 MG; Start 02/02/17 at 06:00 Miscellaneous Information 1 ea NOTE XX ; Start 02/02/17 at 07:00 Glucose (Glutose) 15 gm Q15M PRN PO DECREASED GLUCOSE; Start 02/02/17 at 07:00 Glucose (Glutose) 22.5 gm Q15M PRN PO DECREASED GLUCOSE; Start 02/02/17 at 07: 00 Dextrose (D50w Syringe) 25 ml Q15M PRN IV DECREASED GLUCOSE; Start 02/02/17 at 07:00 Dextrose (D50w Syringe) 50 ml Q15M PRN IV DECREASED GLUCOSE; Start 02/02/17 at 07:00 Glucagon (Glucagen) 1 mg Q15M PRN IM DECREASED GLUCOSE; Start 02/02/17 at 07:00 Glucose 15 gm 15 gm Q15M PRN BUCCAL DECREASED GLUCOSE; Start 02/02/17 at 07:00 Dextrose/Sodium Chloride (D5-1/2ns) 1,000 ml @ 70 mls/hr [id number] IV Last administered on 02/02/17 10:48; Admin Dose 70 MLS/HR; Start 02/02/17 at 10:30 Insulin Aspart (Adult SC Insulin - Moder... Q4 SC Last administered on 13:11; Admin Dose 2 UNIT; Start 02/02/17 at 13:00 Potassium Chloride/Dextrose/ Sod Cl (D5-1/2ns + KCl 20 Meq) 1,000 ml @ 70 mls/ hr [id number] IV Last administered on 02/02/17 12:26; Admin Dose 70 MLS/HR; Start 02/02/17 at 12:00 Hydralazine HCl (Apresoline) 10 mg Q6H PRN IV SBP>170; Start 02/02/17 at 12:00 Clonidine HCl (Catapres-Tts 1 Patch) 1 patch Q7D TRANSDERM Last administered on 02/02/17 13:26; Admin Dose 1 PATCH; Start 02/02/17 at 13:00 Citalopram Hydrobromide (Celexa) 20 mg DAILY PO ; Start 02/02/17 at 15:00 Buspirone HCl (Buspar) 10 mg BID PO ; Start 02/02/17 at 21:00 Procedures Procedures ROCEDURE: CT Abdomen and pelvis with contrast. CLINICAL INDICATION: Abdominal pain. T IMPRESSION: Mild stranding, free fluid and free air within the abdomen suggestive of viscus perforation, decreased compared with 11/27/2016. The site of perforation could be from a diverticuli of the mid sigmoid colon. Mild bibasilar atelectasis LONA TRUJILLO MD Feb 02, 2017 15:59
--- NOTE | 2017-02-02 16:12 | CONS ---
Date/Time of Note Date/Time of Note DATE: 02/02/17 TIME: 16:09 Assessment/Plan Assessment/Plan Chief Complaint/Hosp Course 1. Diverticulitis with microperforation, recurrent. 2. Diabetes mellitus, uncontrolled. 3. Hypertension, uncontrolled. 4. Depression 5. Obesity 6. Rosacea 7. Anemia 8. Dyslipidemia Problems: Additional Assessment/Plan 1. Better HTN control 2. continue current regime Consultation Date/Type/Reason Admit Date/Time Feb 02, 2017 at 01:54 Initial Consult Date 02/02/17 Type of Consultation: dr Garner, Dr Jessica Reason for Consultation nephrology Exam/Review of Systems Vital Signs Vitals Vital Signs Date Time Temp Pulse Resp B/P Pulse Ox O2 Delivery O2 Flow Rate FiO2 02/02/17 14:28 98.1 85 18 160/101 98 02/02/17 06:57 Room Air Intake and Output 02/01/17 02/01/17 02/02/17 15:00 23:00 07:00 Intake Total 0 ml Output Total 300 ml Balance -300 ml Exam Constitutional: alert Psych: no complaints Respiratory: clear to auscultation Cardiovascular: regular rate and rhythm Gastrointestinal: rebound or guarding, soft, tender Results Result Diagram: 02/02/17 0626 02/02/17 0626 Results 24 hrs Laboratory Tests Test 02/01/17 21:56 02/01/17 22:00 02/01/17 23:26 02/02/17 04:33 White Blood Count 13.5 #H Red Blood Count 3.96 L Hemoglobin 13.1 Hematocrit 39.4 Mean Corpuscular Volume 99.5 Mean Corpuscular Hemoglobin 33.1 H Mean Corpuscular Hemoglobin Concent 33.2 Red Cell Distribution Width 13.3 Platelet Count 292 Mean Platelet Volume 9.4 Neutrophils % Lymphocytes % Monocytes % Eosinophils % Basophils % Nucleated Red Blood Cells % 0.0 Neutrophils # (Manual) 12 H Lymphocytes # Monocytes # Eosinophils # Basophils # Nucleated Red Blood Cells # Urine Color STRAW Urine Clarity CLEAR Urine pH 6.0 Urine Specific [place] 1.037 H Urine Ketones TRACE A Urine Nitrite NEGATIVE Urine Bilirubin NEGATIVE Urine Urobilinogen NEGATIVE Urine Leukocyte Esterase NEGATIVE Urine Microscopic RBC 1 Urine Microscopic WBC 3 Urine Squamous Epithelial Cells FEW Urine Hemoglobin 1+ H Urine Glucose 3+ H Urine Total Protein NEGATIVE Sodium Level 132 L Potassium Level 3.5 Chloride Level 94 L Carbon Dioxide Level 28 Anion Gap 14 Blood Urea Nitrogen 21 H Creatinine 0.83 Glucose Level 531 *H Calcium Level 10.0 Total Bilirubin 0.4 Direct Bilirubin 0.00 Indirect Bilirubin 0.4 Aspartate Amino Transf (AST/SGOT) 17 Alanine Aminotransferase (ALT/SGPT) 43 Alkaline Phosphatase 142 H B-Type Natriuretic Peptide 746 H Total Protein 6.5 Albumin 3.7 Globulin 2.80 Albumin/Globulin Ratio 1.32 Lipase 146 Serum HCG, Qualitative NEGATIVE Troponin I < 0.012 Bedside Glucose 440 *H 265 H Test 02/02/17 06:26 02/02/17 09:21 02/02/17 13:03 White Blood Count 10.4 # Red Blood Count 3.31 L Hemoglobin 10.8 L Hematocrit 32.9 L Mean Corpuscular Volume 99.4 Mean Corpuscular Hemoglobin 32.6 Mean Corpuscular Hemoglobin Concent 32.8 Red Cell Distribution Width 13.6 Platelet Count 247 Mean Platelet Volume 9.5 Neutrophils % 80.6 H Lymphocytes % 8.0 L Monocytes % 5.5 Eosinophils % 0.1 Basophils % 0.2 Nucleated Red Blood Cells % 0.0 Neutrophils # (Manual) 8 H Lymphocytes # 0.8 Monocytes # 0.6 Eosinophils # 0.0 Basophils # 0.0 Nucleated Red Blood Cells # 0.0 Sodium Level 142 Potassium Level 3.1 L Chloride Level 102 Carbon Dioxide Level 28 Anion Gap 15 Blood Urea Nitrogen 16 Creatinine 0.49 Glucose Level 238 #H Hemoglobin A1c 10.4 H Calcium Level 8.5 Total Bilirubin 0.2 Direct Bilirubin 0.00 Indirect Bilirubin 0.2 Aspartate Amino Transf (AST/SGOT) 20 Alanine Aminotransferase (ALT/SGPT) 44 Alkaline Phosphatase 88 Total Protein 5.7 L Albumin 3.0 L Globulin 2.70 Albumin/Globulin Ratio 1.11 Triglycerides Level 89 Cholesterol Level 124 LDL Cholesterol, Calculated 82 HDL Cholesterol 24 L Cholesterol/HDL Ratio 5.1 Bedside Glucose 230 H 178 Medications Medications Current Medications Insulin Glargine (Lantus) 15 unit DAILY@08 SC Last administered on 02/02/17t 10 :13; Admin Dose 15 UNIT; Start 02/02/17 at 08:00 Ondansetron HCl (Zofran Inj) 4 mg Q6H PRN IV NAUSEA AND/OR VOMITING; Start at 06:00 Morphine Sulfate 2 mg 2 mg Q3 PRN IV PAIN; Start 02/02/17 at 06:00 Piperacillin Sod/ Tazobactam Sod (Zosyn 3.375gm/ 100 ml (Pmx)) 100 ml @ 200 mls /hr Q6 IVPB Last administered on 02/02/17 12:19; Admin Dose 200 MLS/HR; Start 02/02/17 at 06:00 Hydralazine HCl (Apresoline) 10 mg Q4H PRN IV SBP >160 Last administered on 06:53; Admin Dose 10 MG; Start 02/02/17 at 06:00 Miscellaneous Information 1 ea NOTE XX ; Start 02/02/17 at 07:00 Glucose (Glutose) 15 gm Q15M PRN PO DECREASED GLUCOSE; Start 02/02/17 at 07:00 Glucose (Glutose) 22.5 gm Q15M PRN PO DECREASED GLUCOSE; Start 02/02/17 at 07: 00 Dextrose (D50w Syringe) 25 ml Q15M PRN IV DECREASED GLUCOSE; Start 02/02/17 at 07:00 Dextrose (D50w Syringe) 50 ml Q15M PRN IV DECREASED GLUCOSE; Start 02/02/17 at 07:00 Glucagon (Glucagen) 1 mg Q15M PRN IM DECREASED GLUCOSE; Start 02/02/17 at 07:00 Glucose (Glutose) 15 gm Q15M PRN BUCCAL DECREASED GLUCOSE; Start 02/02/17 at 07 :00 Insulin Aspart (Adult SC Insulin - Moder... Q4 SC Last administered on 13:11; Admin Dose 2 UNIT; Start 02/02/17 at 13:00 Potassium Chloride/Dextrose/ Sod Cl (D5-1/2ns + KCl 20 Meq) 1,000 ml @ 70 mls/ hr [id number] IV Last administered on 02/02/17 12:26; Admin Dose 70 MLS/HR; Start 02/02/17 at 12:00 Hydralazine HCl (Apresoline) 10 mg Q6H PRN IV SBP>170; Start 02/02/17 at 12:00 Clonidine HCl (Catapres-Tts 1 Patch) 1 patch Q7D TRANSDERM Last administered on 02/02/17 13:26; Admin Dose 1 PATCH; Start 02/02/17 at 13:00 Citalopram Hydrobromide (Celexa) 20 mg DAILY PO ; Start 02/02/17 at 15:00 Buspirone HCl (Buspar) 10 mg BID PO ; Start 02/02/17 at 21:00 WINTER BERNARDO Feb 02, 2017 16:11
[2017-02-02] MEDS: BUSPIRONE 10 MG TAB PO SCH (21:16)
[2017-02-02] MEDS: morphine 2 MG INJ IV PRN (21:35)
[2017-02-03] MEDS: PIPER-TAZO 3.375 GM IV (PMX) 100 ML IVPB SCH ×4 (00:39→18:11)
[2017-02-03] MEDS: morphine 2 MG INJ IV PRN (00:56)
[2017-02-03] MEDS: Insulin NOVOLOG SS MODERATE Algorithm(NPO/TPN/ENTERAL FEEDS) SC SCH ×6 (01:02→20:53)
[2017-02-03] MEDS ORDERED: ACCU-CHEK XX SCH ×2 (02:00)
[2017-02-03 02:15] VITALS: BP 121/93; RESP 18
[2017-02-03] MEDS: D5W-0.45 NACL + KCL 20 MEQ 1,000 ML IV SCH ×3 (05:31→22:44)
[2017-02-03 06:03] LABS: BASOPHIL # 0.1 10^3/ul (0.0-0.1); BASOPHILS % 0.5 % (0.0-2.0); HEMATOCRIT 35.3 % (37.0-47.0); HEMOGLOBIN 11.6 g/dl (12.0-16.0); LYMPHOCYTES # 1.1 10^3/ul (0.8-2.9); LYMPHOCYTES % 10.5 % (15.0-51.0); MEAN CORPUSCULAR HEMOGLOBIN 32.7 pg (29.0-33.0); MEAN CORPUSCULAR HGB CONC 32.9 g/dl (32.0-37.0); MEAN CORPUSCULAR VOLUME 99.4 fl (82.0-101.0); MEAN PLATELET VOLUME 9.5 fl (7.4-10.4); MONOCYTE # 0.6 10^3/ul (0.3-0.9); MONOCYTES % 5.7 % (0.0-11.0); NEUTROPHILS % 80.9 % (39.0-77.0); PLATELET COUNT 307 10^3/UL (140-415); RED BLOOD COUNT 3.55 10^6/ul (4.20-5.40); RED CELL DISTRIBUTION WIDTH 13.2 % (11.5-14.5); WHITE BLOOD COUNT 10.1 10^3/ul (4.8-10.8)
[2017-02-03 06:24] LABS: CALCIUM 8.4 mg/dl (8.4-10.2); CREATININE 0.46 mg/dl (0.44-1.00)
[2017-02-03 06:27] LABS: POTASSIUM 2.8 mmol/L (3.5-5.1)
[2017-02-03] MEDS ORDERED: POTASSIUM CHLORIDE (SR) 20 MEQ TAB PO STA (06:32)
[2017-02-03 08:21] VITALS: BP 148/100; RESP 15
--- NOTE | 2017-02-03 08:55 | PN ---
Date/Time of Note Date/Time of Note DATE: 02/03/17 TIME: 08:53 Assessment/Plan Lines/Catheters IV Catheter Type (from [facility]): Peripheral IV Assessment/Plan Chief Complaint/Hosp Course The patient is a 36-year-old female with 2 days of left lower quadrant abdominal pain. Suddenly and has persisted. She had a prior episode 2 months ago where she required a laparoscopy. She felt that the symptoms are similar presented to the ER. Problems: Assessment/Plan Resolving diverticulitis Start clears If tolerates clears, advance to soft diet and likely discharge tomorrow Possible PICC line and intravenous antibiotics as this is her second attack in 2 months Subjective 24 Hr Interval Summary Patient is feeling much better. Had bowel movement and passing flatus. Exam/Review of Systems Vital Signs Vitals Vital Signs Date Time Temp Pulse Resp B/P Pulse Ox O2 Delivery O2 Flow Rate FiO2 02/03/17 08:21 97.7 70 15 148/100 99 02/02/17 20:35 Room Air Intake and Output 02/02/17 02/02/17 02/03/17 15:00 23:00 07:00 Intake Total 650 ml 450 ml 280 ml Output Total 850 ml Balance 650 ml 450 ml -570 ml Exam Head: normocephalic Neck: supple Respiratory: clear to auscultation Cardiovascular: regular rate and rhythm Gastrointestinal: other (Decrease left lower quadrant tenderness) Results Result Diagram: 02/03/17 0507 02/03/17 0507 LONA TRUJILLO MD Feb 03, 2017 08:55
[2017-02-03] MEDS: INSULIN GLARGINE [LANtus] 3 ML PEN SC SCH (09:05)
[2017-02-03] MEDS: CITALOPRAM 20 MG TAB PO SCH (09:17)
[2017-02-03] MEDS: BUSPIRONE 10 MG TAB PO SCH ×2 (09:17→20:40)
--- NOTE | 2017-02-03 09:51 | PN ---
Date/Time of Note Date/Time of Note DATE: 02/03/17 TIME: 09:50 Assessment/Plan VTE Prophylaxis VTE Prophylaxis Intervention: other Lines/Catheters IV Catheter Type (from Nrs): Peripheral IV Assessment/Plan Chief Complaint/Hosp Course -Perforated viscous, continue IV fluids antibiotics and keep patient n.p.o. Dr. Kong is following in general surgery consultation. -Diabetes mellitus, will check hemoglobin A1c continue a Lantus and NovoLog with Accu-Chek every 4 hours. -Hypertension, continue hydralazine as needed for systolic blood pressure above 170, clonidine patch while patient is n.p.o. -Depression -Obesity with BMI of 30.8 Problems: Subjective 24 Hr Interval Summary Free Text/Dictation Patient has some abdominal pain Exam/Review of Systems Vital Signs Vitals Vital Signs Date Time Temp Pulse Resp B/P Pulse Ox O2 Delivery O2 Flow Rate FiO2 02/03/17 08:21 97.7 70 15 148/100 99 02/02/17 20:35 Room Air Intake and Output 02/02/17 02/02/17 02/03/17 15:00 23:00 07:00 Intake Total 650 ml 450 ml 280 ml Output Total 850 ml Balance 650 ml 450 ml -570 ml Exam Constitutional: well developed Head: atraumatic, normocephalic Neck: supple Respiratory: diminished breath sounds Cardiovascular: regular rate and rhythm Gastrointestinal: non-tender, soft Extremities: normal pulses Results Result Diagram: 02/03/17 0507 02/03/17 0507 Results 24 hrs Laboratory Tests Test 02/02/17 13:03 02/02/17 16:56 02/02/17 21:14 02/03/17 00:38 Bedside Glucose 178 108 177 203 Test 02/03/17 05:07 02/03/17 05:30 02/03/17 08:57 White Blood Count 10.1 Red Blood Count 3.55 L Hemoglobin 11.6 L Hematocrit 35.3 L Mean Corpuscular Volume 99.4 Mean Corpuscular Hemoglobin 32.7 Mean Corpuscular Hemoglobin Concent 32.9 Red Cell Distribution Width 13.2 Platelet Count 307 # Mean Platelet Volume 9.5 Neutrophils % 80.9 H Lymphocytes % 10.5 L Monocytes % 5.7 Eosinophils % 0.0 Basophils % 0.5 Nucleated Red Blood Cells % 0.0 Neutrophils # (Manual) 8 H Lymphocytes # 1.1 Monocytes # 0.6 Eosinophils # 0.0 Basophils # 0.1 Nucleated Red Blood Cells # 0.0 Sodium Level 136 Potassium Level 2.8 *L Chloride Level 100 Carbon Dioxide Level 28 Anion Gap 11 Blood Urea Nitrogen 11 Creatinine 0.46 Glucose Level 160 Calcium Level 8.4 Bedside Glucose 171 163 Medications Medications Current Medications Insulin Glargine (Lantus) 15 unit DAILY@08 SC Last administered on 02/03/17 09 :05; Admin Dose 15 UNIT; Start 02/02/17 at 08:00 Ondansetron HCl (Zofran Inj) 4 mg Q6H PRN IV NAUSEA AND/OR VOMITING; Start at 06:00 Morphine Sulfate 2 mg 2 mg Q3 PRN IV PAIN Last administered on 02/03/17 00:56 ; Admin Dose 2 MG; Start 02/02/17 at 06:00 Piperacillin Sod/ Tazobactam Sod (Zosyn 3.375gm/ 100 ml (Pmx)) 100 ml @ 200 mls /hr Q6 IVPB Last administered on 02/03/17 05:31; Admin Dose 200 MLS/HR; Start 02/02/17 at 06:00 Hydralazine HCl (Apresoline) 10 mg Q4H PRN IV SBP >160 Last administered on 20:05; Admin Dose 10 MG; Start 02/02/17 at 06:00 Miscellaneous Information 1 ea NOTE XX ; Start 02/02/17 at 07:00 Glucose (Glutose) 15 gm Q15M PRN PO DECREASED GLUCOSE; Start 02/02/17 at 07:00 Glucose (Glutose) 22.5 gm Q15M PRN PO DECREASED GLUCOSE; Start 02/02/17 at 07: 00 Dextrose (D50w Syringe) 25 ml Q15M PRN IV DECREASED GLUCOSE; Start 02/02/17 at 07:00 Dextrose (D50w Syringe) 50 ml Q15M PRN IV DECREASED GLUCOSE; Start 02/02/17 at 07:00 Glucagon (Glucagen) 1 mg Q15M PRN IM DECREASED GLUCOSE; Start 02/02/17 at 07:00 Glucose (Glutose) 15 gm Q15M PRN BUCCAL DECREASED GLUCOSE; Start 02/02/17 at 07 :00 Insulin Aspart (Adult SC Insulin - Moder... Q4 SC Last administered on 09:03; Admin Dose 2 UNIT; Start 02/02/17 at 13:00 Potassium Chloride/Dextrose/ Sod Cl (D5-1/2ns + KCl 20 Meq) 1,000 ml @ 70 mls/ hr [id number] IV Last administered on 02/03/17 05:31; Admin Dose 70 MLS/HR; Start 02/02/17 at 12:00 Hydralazine HCl (Apresoline) 10 mg Q6H PRN IV SBP>170; Start 02/02/17 at 12:00 Clonidine HCl (Catapres-Tts 1 Patch) 1 patch Q7D TRANSDERM Last administered on 02/02/17 13:26; Admin Dose 1 PATCH; Start 02/02/17 at 13:00 Citalopram Hydrobromide (Celexa) 20 mg DAILY PO Last administered on 02/03/17 09:17; Admin Dose 20 MG; Start 02/02/17 at 15:00 Buspirone HCl (Buspar) 10 mg BID PO Last administered on 02/03/17 09:17; Admin Dose 10 MG; Start 02/02/17 at 21:00 PHOENIX ORTIZ Feb 03, 2017 09:50
[2017-02-03 14:00] VITALS: BP 160/111; RESP 16
--- NOTE | 2017-02-03 17:03 | CONS ---
Date/Time of Note Date/Time of Note DATE: 02/03/17 TIME: 16:59 Assessment/Plan Assessment/Plan Additional Assessment/Plan -Perforated viscous, continue IV fluids antibiotics. -Diabetes mellitus -Hypertension, :uncontrolled: will increase catapress patch Stable fluid status. Consultation Date/Type/Reason Admit Date/Time Feb 02, 2017 at 01:54 Initial Consult Date 02/02/17 Type of Consultation: dr Garner, Dr Jessica 24 HR Interval Summary Free Text/Dictation Was started on clear liquids today ROS: No fever, no chills, no nausea, no vomiting, no diarrhea/constipation No recent weight changes No edema, no palpitations No chest pain, no PND, no SOB No dizziness, blurred vision No thirst, no heat or cold intolerance Exam/Review of Systems Vital Signs Vitals Vital Signs Date Time Temp Pulse Resp B/P Pulse Ox O2 Delivery O2 Flow Rate FiO2 02/03/17 14:00 98.1 70 16 160/111 99 02/02/17 20:35 Room Air Intake and Output 02/02/17 02/02/17 02/03/17 15:00 23:00 07:00 Intake Total 650 ml 450 ml 280 ml Output Total 850 ml Balance 650 ml 450 ml -570 ml Exam General: WN/WD HEENT: Unicetric/atraumatic/ no assymetry NECK: JVD not elevated, no thyromegaly, carotids revealed normal upstrokes Lymph: no lymphadenopathy HEART: regular with no S3, I/ systolic murmur at apex LUNGS: clear ABD: soft, NT, ND, +BS, no organomegaly Neuro: no deficit SKIN: no leisons EXT: no edema Results Result Diagram: 02/03/17 0507 02/03/17 0507 Results 24 hrs Laboratory Tests Test 02/02/17 21:14 02/03/17 00:38 02/03/17 05:07 02/03/17 05:30 Bedside Glucose 177 203 171 White Blood Count 10.1 Red Blood Count 3.55 L Hemoglobin 11.6 L Hematocrit 35.3 L Mean Corpuscular Volume 99.4 Mean Corpuscular Hemoglobin 32.7 Mean Corpuscular Hemoglobin Concent 32.9 Red Cell Distribution Width 13.2 Platelet Count 307 # Mean Platelet Volume 9.5 Neutrophils % 80.9 H Lymphocytes % 10.5 L Monocytes % 5.7 Eosinophils % 0.0 Basophils % 0.5 Nucleated Red Blood Cells % 0.0 Neutrophils # (Manual) 8 H Lymphocytes # 1.1 Monocytes # 0.6 Eosinophils # 0.0 Basophils # 0.1 Nucleated Red Blood Cells # 0.0 Sodium Level 136 Potassium Level 2.8 *L Chloride Level 100 Carbon Dioxide Level 28 Anion Gap 11 Blood Urea Nitrogen 11 Creatinine 0.46 Glucose Level 160 Calcium Level 8.4 Test 02/03/17 08:57 02/03/17 12:42 Bedside Glucose 163 143 Medications Medications Current Medications Insulin Glargine (Lantus) 15 unit DAILY@08 SC Last administered on 02/03/17 09 :05; Admin Dose 15 UNIT; Start 02/02/17 at 08:00 Ondansetron HCl (Zofran Inj) 4 mg Q6H PRN IV NAUSEA AND/OR VOMITING; Start at 06:00 Morphine Sulfate 2 mg 2 mg Q3 PRN IV PAIN Last administered on 02/03/17 00:56 ; Admin Dose 2 MG; Start 02/02/17 at 06:00 Piperacillin Sod/ Tazobactam Sod (Zosyn 3.375gm/ 100 ml (Pmx)) 100 ml @ 200 mls /hr Q6 IVPB Last administered on 02/03/17 11:47; Admin Dose 200 MLS/HR; Start 02/02/17 at 06:00 Hydralazine HCl (Apresoline) 10 mg Q4H PRN IV SBP >160 Last administered on 20:05; Admin Dose 10 MG; Start 02/02/17 at 06:00 Miscellaneous Information 1 ea NOTE XX ; Start 02/02/17 at 07:00 Glucose (Glutose) 15 gm Q15M PRN PO DECREASED GLUCOSE; Start 02/02/17 at 07:00 Glucose (Glutose) 22.5 gm Q15M PRN PO DECREASED GLUCOSE; Start 02/02/17 at 07: 00 Dextrose (D50w Syringe) 25 ml Q15M PRN IV DECREASED GLUCOSE; Start 02/02/17 at 07:00 Dextrose (D50w Syringe) 50 ml Q15M PRN IV DECREASED GLUCOSE; Start 02/02/17 at 07:00 Glucagon (Glucagen) 1 mg Q15M PRN IM DECREASED GLUCOSE; Start 02/02/17 at 07:00 Glucose (Glutose) 15 gm Q15M PRN BUCCAL DECREASED GLUCOSE; Start 02/02/17 at 07 :00 Insulin Aspart (Adult SC Insulin - Moder... Q4 SC Last administered on 13:13; Admin Dose 2 UNIT; Start 02/02/17 at 13:00 Potassium Chloride/Dextrose/ Sod Cl (D5-1/2ns + KCl 20 Meq) 1,000 ml @ 70 mls/ hr [id number] IV Last administered on 02/03/17 05:31; Admin Dose 70 MLS/HR; Start 02/02/17 at 12:00 Hydralazine HCl (Apresoline) 10 mg Q6H PRN IV SBP>170; Start 02/02/17 at 12:00 Clonidine HCl (Catapres-Tts 1 Patch) 1 patch Q7D TRANSDERM Last administered on 02/02/17 13:26; Admin Dose 1 PATCH; Start 02/02/17 at 13:00 Citalopram Hydrobromide (Celexa) 20 mg DAILY PO Last administered on 02/03/17 09:17; Admin Dose 20 MG; Start 02/02/17 at 15:00 Buspirone HCl (Buspar) 10 mg BID PO Last administered on 02/03/17 09:17; Admin Dose 10 MG; Start 02/02/17 at 21:00 EVY BROWER MD Feb 03, 2017 17:03
[2017-02-03] MEDS ORDERED: CLONIDINE 0.2 MG/24 HR PATCH TRANSDERM SCH (18:00)
[2017-02-03 19:15] VITALS: BP 164/112; RESP 18
[2017-02-04] MEDS: PIPER-TAZO 3.375 GM IV (PMX) 100 ML IVPB SCH ×5 (01:04→23:51)
[2017-02-04] MEDS: Insulin NOVOLOG SS MODERATE Algorithm(NPO/TPN/ENTERAL FEEDS) SC SCH ×6 (01:11→20:45)
[2017-02-04 02:06] VITALS: BP 152/98; RESP 18
[2017-02-04 05:05] LABS: BASOPHILS % 0.2 % (0.0-2.0); EOSINOPHILS % 0.1 % (0.0-7.0); HEMATOCRIT 35.4 % (37.0-47.0); HEMOGLOBIN 11.4 g/dl (12.0-16.0); LYMPHOCYTES # 1.2 10^3/ul (0.8-2.9); LYMPHOCYTES % 13.2 % (15.0-51.0); MEAN CORPUSCULAR HEMOGLOBIN 31.4 pg (29.0-33.0); MEAN CORPUSCULAR HGB CONC 32.2 g/dl (32.0-37.0); MEAN CORPUSCULAR VOLUME 97.5 fl (82.0-101.0); MEAN PLATELET VOLUME 9.4 fl (7.4-10.4); MONOCYTE # 0.5 10^3/ul (0.3-0.9); MONOCYTES % 5.5 % (0.0-11.0); NEUTROPHILS % 77.2 % (39.0-77.0); PLATELET COUNT 325 10^3/UL (140-415); RED BLOOD COUNT 3.63 10^6/ul (4.20-5.40); RED CELL DISTRIBUTION WIDTH 13.2 % (11.5-14.5); WHITE BLOOD COUNT 9.1 10^3/ul (4.8-10.8)
[2017-02-04 05:40] LABS: CALCIUM 8.7 mg/dl (8.4-10.2); CREATININE 0.55 mg/dl (0.44-1.00); POTASSIUM 3.2 mmol/L (3.5-5.1)
[2017-02-04] MEDS: D5W-0.45 NACL + KCL 20 MEQ 1,000 ML IV SCH ×2 (06:54→14:27)
[2017-02-04 07:56] VITALS: BP 151/101; RESP 18
[2017-02-04] MEDS: BUSPIRONE 10 MG TAB PO SCH ×2 (08:39→20:43)
[2017-02-04] MEDS: CITALOPRAM 20 MG TAB PO SCH (08:39)
[2017-02-04] MEDS: INSULIN GLARGINE [LANtus] 3 ML PEN SC SCH (08:39)
--- NOTE | 2017-02-04 11:40 | PN ---
Date/Time of Note Date/Time of Note DATE: 02/04/17 TIME: 11:39 Assessment/Plan VTE Prophylaxis VTE Prophylaxis Intervention: other Lines/Catheters IV Catheter Type (from Nrs): Peripheral IV Assessment/Plan Chief Complaint/Hosp Course -Perforated viscous, continue IV fluids antibiotics and keep patient n.p.o. Dr. Kong is following in general surgery consultation. -Diabetes mellitus, will check hemoglobin A1c continue a Lantus and NovoLog with Accu-Chek every 4 hours. -Hypertension, continue hydralazine as needed for systolic blood pressure above 170, clonidine patch while patient is n.p.o. -Depression -Obesity with BMI of 30.8 Problems: Subjective 24 Hr Interval Summary Free Text/Dictation Patient denies any abdominal pain Exam/Review of Systems Vital Signs Vitals Vital Signs Date Time Temp Pulse Resp B/P Pulse Ox O2 Delivery O2 Flow Rate FiO2 02/04/17 07:56 97.8 70 18 151/101 97 02/02/17 20:35 Room Air Intake and Output 02/03/17 02/03/17 02/04/17 15:00 23:00 07:00 Intake Total 100 ml 1720 ml 910 ml Balance 100 ml 1720 ml 910 ml Exam Constitutional: well developed Head: atraumatic, normocephalic Neck: supple Respiratory: clear to auscultation Cardiovascular: regular rate and rhythm Gastrointestinal: non-tender, soft Extremities: normal pulses Results Result Diagram: 02/04/17 0436 02/04/17 0436 Results 24 hrs Laboratory Tests Test 02/03/17 12:42 02/03/17 17:29 02/03/17 20:36 02/04/17 01:05 Bedside Glucose 143 181 223 H 151 Test 02/04/17 04:36 02/04/17 05:02 02/04/17 08:34 White Blood Count 9.1 Red Blood Count 3.63 L Hemoglobin 11.4 L Hematocrit 35.4 L Mean Corpuscular Volume 97.5 Mean Corpuscular Hemoglobin 31.4 Mean Corpuscular Hemoglobin Concent 32.2 Red Cell Distribution Width 13.2 Platelet Count 325 Mean Platelet Volume 9.4 Neutrophils % 77.2 H Lymphocytes % 13.2 L Monocytes % 5.5 Eosinophils % 0.1 Basophils % 0.2 Nucleated Red Blood Cells % 0.0 Neutrophils # (Manual) 7 Lymphocytes # 1.2 Monocytes # 0.5 Eosinophils # 0.0 Basophils # 0.0 Nucleated Red Blood Cells # 0.0 Sodium Level 140 Potassium Level 3.2 L Chloride Level 100 Carbon Dioxide Level 29 Anion Gap 14 Blood Urea Nitrogen 10 Creatinine 0.55 Glucose Level 89 # Calcium Level 8.7 Bedside Glucose 96 135 Medications Medications Current Medications Insulin Glargine (Lantus) 15 unit DAILY@08 SC Last administered on 02/04/17 08 :39; Admin Dose 15 UNIT; Start 02/02/17 at 08:00 Ondansetron HCl (Zofran Inj) 4 mg Q6H PRN IV NAUSEA AND/OR VOMITING; Start at 06:00 Morphine Sulfate 2 mg 2 mg Q3 PRN IV PAIN Last administered on 02/03/17 00:56 ; Admin Dose 2 MG; Start 02/02/17 at 06:00 Piperacillin Sod/ Tazobactam Sod (Zosyn 3.375gm/ 100 ml (Pmx)) 100 ml @ 200 mls /hr Q6 IVPB Last administered on 02/04/17 05:01; Admin Dose 200 MLS/HR; Start 02/02/17 at 06:00 Hydralazine HCl (Apresoline) 10 mg Q4H PRN IV SBP >160 Last administered on 20:05; Admin Dose 10 MG; Start 02/02/17 at 06:00 Miscellaneous Information 1 ea NOTE XX ; Start 02/02/17 at 07:00 Glucose (Glutose) 15 gm Q15M PRN PO DECREASED GLUCOSE; Start 02/02/17 at 07:00 Glucose (Glutose) 22.5 gm Q15M PRN PO DECREASED GLUCOSE; Start 02/02/17 at 07: 00 Dextrose (D50w Syringe) 25 ml Q15M PRN IV DECREASED GLUCOSE; Start 02/02/17 at 07:00 Dextrose (D50w Syringe) 50 ml Q15M PRN IV DECREASED GLUCOSE; Start 02/02/17 at 07:00 Glucagon (Glucagen) 1 mg Q15M PRN IM DECREASED GLUCOSE; Start 02/02/17 at 07:00 Glucose (Glutose) 15 gm Q15M PRN BUCCAL DECREASED GLUCOSE; Start 02/02/17 at 07 :00 Insulin Aspart (Adult SC Insulin - Moder... Q4 SC Last administered on 01:11; Admin Dose 2 UNIT; Start 02/02/17 at 13:00 Potassium Chloride/Dextrose/ Sod Cl (D5-1/2ns + KCl 20 Meq) 1,000 ml @ 70 mls/ hr [id number] IV Last administered on 02/03/17 22:44; Admin Dose 70 MLS/HR; Start 02/02/17 at 12:00 Hydralazine HCl (Apresoline) 10 mg Q6H PRN IV SBP>170; Start 02/02/17 at 12:00 Citalopram Hydrobromide (Celexa) 20 mg DAILY PO Last administered on 02/04/17 08:39; Admin Dose 20 MG; Start 02/02/17 at 15:00 Buspirone HCl (Buspar) 10 mg BID PO Last administered on 02/04/17 08:39; Admin Dose 10 MG; Start 02/02/17 at 21:00 Clonidine HCl (Catapres-Tts 2 Patch) 1 patch Q7D TRANSDERM Last administered on 02/03/17 20:41; Admin Dose 1 PATCH; Start 02/03/17 at 18:00 PHOENIX ORTIZ Feb 04, 2017 11:40
--- NOTE | 2017-02-04 15:02 | CONS ---
Date/Time of Note Date/Time of Note DATE: 02/04/17 TIME: 14:57 Assessment/Plan Assessment/Plan Additional Assessment/Plan -Hypertension: ? anxiety, uncontrolled: will add Inderal Hypokalemia: Will give KCL Stable fluid status. Consultation Date/Type/Reason Admit Date/Time Feb 02, 2017 at 01:54 Initial Consult Date 02/02/17 Type of Consultation: dr Garner, Dr Jessica 24 HR Interval Summary Free Text/Dictation ROS: No fever, no chills, no nausea, no vomiting, no diarrhea/constipation No recent weight changes No edema, no palpitations No chest pain, no PND, no SOB No dizziness, blurred vision No thirst, no heat or cold intolerance Exam/Review of Systems Vital Signs Vitals Vital Signs Date Time Temp Pulse Resp B/P Pulse Ox O2 Delivery O2 Flow Rate FiO2 02/04/17 07:56 97.8 70 18 151/101 97 02/02/17 20:35 Room Air Intake and Output 02/03/17 02/03/17 02/04/17 15:00 23:00 07:00 Intake Total 100 ml 1720 ml 910 ml Balance 100 ml 1720 ml 910 ml Exam General: WN/WD HEENT: Unicetric/atraumatic/ no assymetry NECK: JVD not elevated, no thyromegaly, carotids revealed normal upstrokes Lymph: no lymphadenopathy HEART: regular with no S3, I/ systolic murmur at apex LUNGS: clear ABD: soft, NT, ND, +BS, no organomegaly Neuro: no deficit SKIN: no leisons EXT: no edema Results Result Diagram: 02/04/17 0436 02/04/17 0436 Results 24 hrs Laboratory Tests Test 02/03/17 17:29 02/03/17 20:36 02/04/17 01:05 02/04/17 04:36 Bedside Glucose 181 223 H 151 White Blood Count 9.1 Red Blood Count 3.63 L Hemoglobin 11.4 L Hematocrit 35.4 L Mean Corpuscular Volume 97.5 Mean Corpuscular Hemoglobin 31.4 Mean Corpuscular Hemoglobin Concent 32.2 Red Cell Distribution Width 13.2 Platelet Count 325 Mean Platelet Volume 9.4 Neutrophils % 77.2 H Lymphocytes % 13.2 L Monocytes % 5.5 Eosinophils % 0.1 Basophils % 0.2 Nucleated Red Blood Cells % 0.0 Neutrophils # (Manual) 7 Lymphocytes # 1.2 Monocytes # 0.5 Eosinophils # 0.0 Basophils # 0.0 Nucleated Red Blood Cells # 0.0 Sodium Level 140 Potassium Level 3.2 L Chloride Level 100 Carbon Dioxide Level 29 Anion Gap 14 Blood Urea Nitrogen 10 Creatinine 0.55 Glucose Level 89 # Calcium Level 8.7 Test 02/04/17 05:02 02/04/17 08:34 02/04/17 12:41 Bedside Glucose 96 135 173 Medications Medications Current Medications Insulin Glargine (Lantus) 15 unit DAILY@08 SC Last administered on 02/04/17 08 :39; Admin Dose 15 UNIT; Start 02/02/17 at 08:00 Ondansetron HCl (Zofran Inj) 4 mg Q6H PRN IV NAUSEA AND/OR VOMITING; Start at 06:00 Morphine Sulfate 2 mg 2 mg Q3 PRN IV PAIN Last administered on 02/03/17 00:56 ; Admin Dose 2 MG; Start 02/02/17 at 06:00 Piperacillin Sod/ Tazobactam Sod (Zosyn 3.375gm/ 100 ml (Pmx)) 100 ml @ 200 mls /hr Q6 IVPB Last administered on 02/04/17 12:42; Admin Dose 200 MLS/HR; Start 02/02/17 at 06:00 Hydralazine HCl (Apresoline) 10 mg Q4H PRN IV SBP >160 Last administered on 20:05; Admin Dose 10 MG; Start 02/02/17 at 06:00 Miscellaneous Information 1 ea NOTE XX ; Start 02/02/17 at 07:00 Glucose (Glutose) 15 gm Q15M PRN PO DECREASED GLUCOSE; Start 02/02/17 at 07:00 Glucose (Glutose) 22.5 gm Q15M PRN PO DECREASED GLUCOSE; Start 02/02/17 at 07: 00 Dextrose (D50w Syringe) 25 ml Q15M PRN IV DECREASED GLUCOSE; Start 02/02/17 at 07:00 Dextrose (D50w Syringe) 50 ml Q15M PRN IV DECREASED GLUCOSE; Start 02/02/17 at 07:00 Glucagon (Glucagen) 1 mg Q15M PRN IM DECREASED GLUCOSE; Start 02/02/17 at 07:00 Glucose (Glutose) 15 gm Q15M PRN BUCCAL DECREASED GLUCOSE; Start 02/02/17 at 07 :00 Insulin Aspart (Adult SC Insulin - Moder... Q4 SC Last administered on 12:43; Admin Dose 2 UNIT; Start 02/02/17 at 13:00 Potassium Chloride/Dextrose/ Sod Cl (D5-1/2ns + KCl 20 Meq) 1,000 ml @ 70 mls/ hr [id number] IV Last administered on 02/04/17 14:27; Admin Dose 70 MLS/HR; Start 02/02/17 at 12:00 Hydralazine HCl (Apresoline) 10 mg Q6H PRN IV SBP>170; Start 02/02/17 at 12:00 Citalopram Hydrobromide (Celexa) 20 mg DAILY PO Last administered on 02/04/17 08:39; Admin Dose 20 MG; Start 02/02/17 at 15:00 Buspirone HCl (Buspar) 10 mg BID PO Last administered on 02/04/17 08:39; Admin Dose 10 MG; Start 02/02/17 at 21:00 Clonidine HCl (Catapres-Tts 2 Patch) 1 patch Q7D TRANSDERM Last administered on 02/03/17 20:41; Admin Dose 1 PATCH; Start 02/03/17 at 18:00 EVY BROWER MD Feb 04, 2017 15:01
[2017-02-04] MEDS ORDERED: POTASSIUM CHLORIDE (SR) 8 MEQ CAP PO ONE (15:30)
[2017-02-04 16:08] VITALS: BP 169/120; RESP 18
[2017-02-04] MEDS: hydrALAzine 20 MG INJ IV PRN (16:14)
[2017-02-04 19:10] VITALS: BP 132/95; RESP 16
[2017-02-04] MEDS: PROPRANOLOL 10 MG TAB PO SCH (20:43)
[2017-02-04] MEDS ORDERED: ACCUCHECK 2 AM XX SCH (23:30)
[2017-02-05] MEDS ORDERED: ACCUCHECK AT 2AM (Patients on SS coverage) XX SCH (02:00)
[2017-02-05 05:34] LABS: ABNORMAL IP MESSAGE 1; BASOPHILS % 0.3 % (0.0-2.0); HEMATOCRIT 35.7 % (37.0-47.0); HEMOGLOBIN 11.6 g/dl (12.0-16.0); LYMPHOCYTES # 1.2 10^3/ul (0.8-2.9); LYMPHOCYTES % 12.2 % (15.0-51.0); MEAN CORPUSCULAR HEMOGLOBIN 31.7 pg (29.0-33.0); MEAN CORPUSCULAR HGB CONC 32.5 g/dl (32.0-37.0); MEAN CORPUSCULAR VOLUME 97.5 fl (82.0-101.0); MEAN PLATELET VOLUME 9.3 fl (7.4-10.4); MONOCYTE # 0.7 10^3/ul (0.3-0.9); MONOCYTES % 6.6 % (0.0-11.0); NEUTROPHILS % 73.9 % (39.0-77.0); PLATELET COUNT 348 10^3/UL (140-415); RED BLOOD COUNT 3.66 10^6/ul (4.20-5.40); RED CELL DISTRIBUTION WIDTH 13.3 % (11.5-14.5); WHITE BLOOD COUNT 9.8 10^3/ul (4.8-10.8)
[2017-02-05] MEDS: PIPER-TAZO 3.375 GM IV (PMX) 100 ML IVPB SCH ×3 (05:58→17:40)
[2017-02-05 06:05] LABS: POSITIVE DIFF @See below
[2017-02-05 06:11] LABS: CALCIUM 8.2 mg/dl (8.4-10.2); CREATININE 0.65 mg/dl (0.44-1.00); POTASSIUM 3.1 mmol/L (3.5-5.1)
[2017-02-05] MEDS ORDERED: INSULIN ASPART [NOVOLOG] 3 ML PEN SC SCH ×2 (07:20→17:55)
[2017-02-05 08:01] VITALS: BP 155/106; RESP 18
[2017-02-05] MEDS: BUSPIRONE 10 MG TAB PO SCH (09:02)
[2017-02-05] MEDS: PROPRANOLOL 10 MG TAB PO SCH ×2 (09:03→12:35)
[2017-02-05] MEDS: CITALOPRAM 20 MG TAB PO SCH (09:03)
[2017-02-05] MEDS: Insulin NOVOLOG SS MODERATE Algorithm (SS with meals and bedtime) SC SCH ×3 (09:25→17:43)
[2017-02-05] MEDS: INSULIN GLARGINE [LANtus] 3 ML PEN SC SCH (09:26)
--- NOTE | 2017-02-05 12:23 | CONS ---
Date/Time of Note Date/Time of Note DATE: 02/05/17 TIME: 12:19 Assessment/Plan Assessment/Plan Chief Complaint/Hosp Course IMP: 1.HTN 2.Diverticulitis 3. Psych 4.DM Recc: -Continue abx's and f/u cx data -pain control -Continue BB and increase clonidine TTS to improve BP control Problems: Consultation Date/Type/Reason Admit Date/Time Feb 02, 2017 at 01:54 Initial Consult Date 02/02/17 Type of Consultation: Cardiology Reason for Consultation pre-op/HTN Referring Provider: AME FLORES MD Exam/Review of Systems Vital Signs Vitals Vital Signs Date Time Temp Pulse Resp B/P Pulse Ox O2 Delivery O2 Flow Rate FiO2 02/05/17 08:01 97.6 64 18 155/106 96 02/02/17 20:35 Room Air Intake and Output 02/04/17 02/04/17 02/05/17 15:00 23:00 07:00 Intake Total 750 ml 1210 ml 1000 ml Balance 750 ml 1210 ml 1000 ml Exam Review of Systems: CONSTITUTIONAL: No fevers, chills. PULMONARY: No sob CARDIOVASCULAR: No chest pain/palpitations GASTROINTESTINAL: No nausea/vomiting. GENITOURINARY: No hematuria/dysuria. MUSCULOSKELETAL: No myagias/arthalgias. PSYCHIATRIC: The patient denies depression. NEUROLOGIC: No weakness Constitutional: alert Psych: no complaints Head: normocephalic ENMT: mucosa pink and moist Neck: jvd (8-9 cm water), supple Respiratory: diminished breath sounds (at bases/B) Cardiovascular: regular rate and rhythm Gastrointestinal: soft, tender (mild to palpation) Musculoskeletal: muscle tone (normal) Extremities: edema (none) Neurological: other (No focal deficits) Results Result Diagram: 02/05/17 0451 02/05/17 0451 Results 24 hrs Laboratory Tests Test 02/04/17 12:41 02/04/17 17:45 02/04/17 20:40 02/05/17 01:27 Bedside Glucose 173 259 H 360 H 224 H Test 02/05/17 04:51 02/05/17 08:40 White Blood Count 9.8 Red Blood Count 3.66 L Hemoglobin 11.6 L Hematocrit 35.7 L Mean Corpuscular Volume 97.5 Mean Corpuscular Hemoglobin 31.7 Mean Corpuscular Hemoglobin Concent 32.5 Red Cell Distribution Width 13.3 Platelet Count 348 Mean Platelet Volume 9.3 Neutrophils % 73.9 Lymphocytes % 12.2 L Monocytes % 6.6 Eosinophils % 0.0 Basophils % 0.3 Nucleated Red Blood Cells % 0.0 Neutrophils # (Manual) 7 Lymphocytes # 1.2 Monocytes # 0.7 Eosinophils # 0.0 Basophils # 0.0 Nucleated Red Blood Cells # 0.0 Sodium Level 135 Potassium Level 3.1 L Chloride Level 103 Carbon Dioxide Level 25 Anion Gap 10 Blood Urea Nitrogen 16 Creatinine 0.65 Glucose Level 230 #H Calcium Level 8.2 L Bedside Glucose 205 Medications Medications Current Medications Insulin Glargine (Lantus) 15 unit DAILY@08 SC Last administered on 02/05/17 09 :26; Admin Dose 15 UNIT; Start 02/02/17 at 08:00 Ondansetron HCl (Zofran Inj) 4 mg Q6H PRN IV NAUSEA AND/OR VOMITING; Start at 06:00 Morphine Sulfate 2 mg 2 mg Q3 PRN IV PAIN Last administered on 02/03/17 00:56 ; Admin Dose 2 MG; Start 02/02/17 at 06:00 Piperacillin Sod/ Tazobactam Sod (Zosyn 3.375gm/ 100 ml (Pmx)) 100 ml @ 200 mls /hr Q6 IVPB Last administered on 02/05/17 05:58; Admin Dose 200 MLS/HR; Start 02/02/17 at 06:00 Hydralazine HCl (Apresoline) 10 mg Q4H PRN IV SBP >160 Last administered on 16:14; Admin Dose 10 MG; Start 02/02/17 at 06:00 Miscellaneous Information 1 ea NOTE XX ; Start 02/02/17 at 07:00 Glucose (Glutose) 15 gm Q15M PRN PO DECREASED GLUCOSE; Start 02/02/17 at 07:00 Glucose (Glutose) 22.5 gm Q15M PRN PO DECREASED GLUCOSE; Start 02/02/17 at 07: 00 Dextrose (D50w Syringe) 25 ml Q15M PRN IV DECREASED GLUCOSE; Start 02/02/17 at 07:00 Dextrose (D50w Syringe) 50 ml Q15M PRN IV DECREASED GLUCOSE; Start 02/02/17 at 07:00 Glucagon (Glucagen) 1 mg Q15M PRN IM DECREASED GLUCOSE; Start 02/02/17 at 07:00 Glucose (Glutose) 15 gm Q15M PRN BUCCAL DECREASED GLUCOSE; Start 02/02/17 at 07 :00 Hydralazine HCl (Apresoline) 10 mg Q6H PRN IV SBP>170; Start 02/02/17 at 12:00 Citalopram Hydrobromide (Celexa) 20 mg DAILY PO Last administered on 02/05/17 09:03; Admin Dose 20 MG; Start 02/02/17 at 15:00 Buspirone HCl (Buspar) 10 mg BID PO Last administered on 02/05/17 09:02; Admin Dose 10 MG; Start 02/02/17 at 21:00 Clonidine HCl (Catapres-Tts 2 Patch) 1 patch Q7D TRANSDERM Last administered on 02/03/17 20:41; Admin Dose 1 PATCH; Start 02/03/17 at 18:00 Propranolol HCl (Inderal) 10 mg TID PO Last administered on 02/05/17 09:03; Admin Dose 10 MG; Start 02/04/17 at 21:00 Diagnostic Test (Pha) (Accu-Chek) 1 ea 02 XX Last administered on 02/05/17 02: 00; Admin Dose 1 EA; Start 02/04/17 at 23:30 Diagnostic Test (Pha) (Accu-Chek) 1 ea 02 XX ; Start 02/05/17 at 02:00 GERRI TYLER Feb 05, 2017 12:22
[2017-02-05] MEDS ORDERED: POTASSIUM CHLORIDE 30 MEQ in SOD CHLORIDE 0.9% 150 ML IVPB ONE (13:30)
[2017-02-05 13:59] VITALS: BP 138/94; RESP 19
[2017-02-05] MEDS ORDERED: CLONIDINE 0.3 MG/24 HR PATCH TRANSDERM SCH (14:00)
--- NOTE | 2017-02-05 14:06 | CONS ---
DATE OF ADMISSION: 02/02/2017 DATE OF CONSULTATION: 02/02/2017 REFERRING PHYSICIAN: Teddy Sanchez MD REASON FOR CONSULTATION: Preoperative assessment. HISTORY OF PRESENT ILLNESS: The patient is a 36-year-old woman with morbid obesity, history of binge eating, history of diabetes, history of prior perforated viscus. She comes in the hospital now for suspected viscus perforation. The patient had surgery several months ago, which was tolerated well. At that time, there were no perioperative issues or difficulty with anesthesia. Therefore, I think it would be reasonable to proceed with surgery without any further risk stratification. The patient tolerated the procedure well already. For now, we will continue to optimize diabetic control. I will follow the patient expectantly. Preoperative EKG would be advised. PAST MEDICAL HISTORY: Hypertension, history of diabetes, history of morbid obesity, prior history of abdominal surgeries, perforated viscus. ALLERGIES: NO KNOWN DRUG ALLERGIES. SOCIAL HISTORY: The patient does not smoke, does not drink, does not use any drugs. FAMILY HISTORY: Negative for sudden cardiac or premature coronary artery disease. MEDICATION: Medications now include: 1. Insulin sliding scale. 2. Clonidine as needed. 3. Metformin. 4. Zosyn. 5. Morphine. 6. Hydralazine. REVIEW OF SYSTEMS: No fever or chills. Abdominal discomfort is noted. HEENT: No change in vision or hearing. CARDIAC: No chest pain reported. PULMONARY: No shortness of breath. GASTROINTESTINAL: No nausea or vomiting. GENITOURINARY: No dysuria or hematuria. . PSYCHIATRIC: A history of anxiety, history of binge eating. PHYSICAL EXAMINATION: VITAL SIGNS: Temperature 98.0. Heart rate 85, blood pressure 159/109. GENERAL: Obese woman in no acute distress. Alert and oriented x3. . HEENT: Head normocephalic, atraumatic. Conjunctivae pink. NECK: Supple. JVD is 7 cm. There is no lymphadenopathy. HEART: Regular. S1, S2. No murmur appreciated. PMI is nondisplaced. LUNGS: Clear. ABDOMEN: Abdomen distended. Bowel sounds are present but somewhat hypoactive. GENITOURINARY: Genitalia intact. . EXTREMITIES: There is trace edema. LABORATORY: White blood cell count 10.4, hemoglobin 7.8, platelets 247. Her INR is 0.9. Glucose 230. Creatinine 0.49. ASSESSMENT: Preop assessment. The patient is here for cardiac assessment for likely surgery required for perforated viscus. The patient had similar surgery just a short period ago, which she tolerated well. No further investigation is warranted. Will obtain a preoperative EKG and follow expectantly. 1. Hypertension. Blood pressure slightly on the high side. . I am not sure if she can take medications now. Will continue clonidine patch in postoperative period if necessary. For now, will allow. 2. Obesity, weight loss advised. 3. Diabetes. Continue diabetic optimization and care. 4. Psychiatric. Defer to primary team for evaluation and management. I would like to thank Dr. Sanchez for referring this patient for my evaluation. Dictated By: Anton Deleon MD /[email or web address]/[email or web address] /Document#: [id number]
[2017-02-05 14:27] VITALS: BP 135/91; PULSE 71; RESP 18
--- NOTE | 2017-02-05 16:18 | PN ---
Date/Time of Note Date/Time of Note DATE: 02/05/17 TIME: 16:14 Assessment/Plan VTE Prophylaxis VTE Prophylaxis Intervention: SCD's Lines/Catheters IV Catheter Type (from [facility]): Peripheral IV Assessment/Plan Chief Complaint/Hosp Course Patient was elevated blood sugar above 300, restart metformin, continue Lantus, restart pre-meal NovoLog. Hypokalemia potassium replaced. Patient also complains of bilateral lower extremities edema will obtain 2D echo. Assessment/Plan -Poorly controlled diabetes mellitus with hemoglobin A1c 10.4, continue metformin, Lantus, pre-meal NovoLog and NovoLog sliding scale. Patient requested gluten patient needs glucometer prior to discharge, diabetes education consult requested. -Hypokalemia, potassium replaced, continue to monitor. -Perforated viscous, Dr. Kong is following in general surgery consultation. Patient is started on diet, denies any nausea vomiting. -Hypertension, continue benazepril. -Depression -Obesity with BMI of 30.8 Further recommendations based on clinical course. Plan of care discussed with Dr. Sanchez. Problems: Exam/Review of Systems Vital Signs Vitals Vital Signs Date Time Temp Pulse Resp B/P Pulse Ox O2 Delivery O2 Flow Rate FiO2 02/05/17 14:27 71 18 135/91 Room Air 02/05/17 13:59 98.1 96 Intake and Output 02/04/17 02/04/17 02/05/17 15:00 23:00 07:00 Intake Total 750 ml 1210 ml 1000 ml Balance 750 ml 1210 ml 1000 ml Results Result Diagram: 02/05/17 0451 02/05/17 0451 Results 24 hrs Laboratory Tests Test 02/04/17 17:45 02/04/17 20:40 02/05/17 01:27 02/05/17 04:51 Bedside Glucose 259 H 360 H 224 H White Blood Count 9.8 Red Blood Count 3.66 L Hemoglobin 11.6 L Hematocrit 35.7 L Mean Corpuscular Volume 97.5 Mean Corpuscular Hemoglobin 31.7 Mean Corpuscular Hemoglobin Concent 32.5 Red Cell Distribution Width 13.3 Platelet Count 348 Mean Platelet Volume 9.3 Neutrophils % 73.9 Lymphocytes % 12.2 L Monocytes % 6.6 Eosinophils % 0.0 Basophils % 0.3 Nucleated Red Blood Cells % 0.0 Neutrophils # (Manual) 7 Lymphocytes # 1.2 Monocytes # 0.7 Eosinophils # 0.0 Basophils # 0.0 Nucleated Red Blood Cells # 0.0 Sodium Level 135 Potassium Level 3.1 L Chloride Level 103 Carbon Dioxide Level 25 Anion Gap 10 Blood Urea Nitrogen 16 Creatinine 0.65 Glucose Level 230 #H Calcium Level 8.2 L Test 02/05/17 08:40 02/05/17 12:42 Bedside Glucose 205 397 H Medications Medications Current Medications Insulin Glargine (Lantus) 15 unit DAILY@08 SC Last administered on 02/05/17 09 :26; Admin Dose 15 UNIT; Start 02/02/17 at 08:00 Ondansetron HCl (Zofran Inj) 4 mg Q6H PRN IV NAUSEA AND/OR VOMITING; Start at 06:00 Morphine Sulfate 2 mg 2 mg Q3 PRN IV PAIN Last administered on 02/03/17 00:56 ; Admin Dose 2 MG; Start 02/02/17 at 06:00 Piperacillin Sod/ Tazobactam Sod (Zosyn 3.375gm/ 100 ml (Pmx)) 100 ml @ 200 mls /hr Q6 IVPB Last administered on 02/05/17 12:35; Admin Dose 200 MLS/HR; Start 02/02/17 at 06:00 Hydralazine HCl (Apresoline) 10 mg Q4H PRN IV SBP >160 Last administered on 16:14; Admin Dose 10 MG; Start 02/02/17 at 06:00 Miscellaneous Information 1 ea NOTE XX ; Start 02/02/17 at 07:00 Glucose (Glutose) 15 gm Q15M PRN PO DECREASED GLUCOSE; Start 02/02/17 at 07:00 Glucose (Glutose) 22.5 gm Q15M PRN PO DECREASED GLUCOSE; Start 02/02/17 at 07: 00 Dextrose (D50w Syringe) 25 ml Q15M PRN IV DECREASED GLUCOSE; Start 02/02/17 at 07:00 Dextrose (D50w Syringe) 50 ml Q15M PRN IV DECREASED GLUCOSE; Start 02/02/17 at 07:00 Glucagon (Glucagen) 1 mg Q15M PRN IM DECREASED GLUCOSE; Start 02/02/17 at 07:00 Glucose (Glutose) 15 gm Q15M PRN BUCCAL DECREASED GLUCOSE; Start 02/02/17 at 07 :00 Hydralazine HCl (Apresoline) 10 mg Q6H PRN IV SBP>170; Start 02/02/17 at 12:00 Citalopram Hydrobromide (Celexa) 20 mg DAILY PO Last administered on 02/05/17 09:03; Admin Dose 20 MG; Start 02/02/17 at 15:00 Buspirone HCl (Buspar) 10 mg BID PO Last administered on 02/05/17 09:02; Admin Dose 10 MG; Start 02/02/17 at 21:00 Propranolol HCl (Inderal) 10 mg TID PO Last administered on 02/05/17 12:35; Admin Dose 10 MG; Start 02/04/17 at 21:00 Diagnostic Test (Pha) (Accu-Chek) 1 ea 02 XX Last administered on 02/05/17 02: 00; Admin Dose 1 EA; Start 02/04/17 at 23:30 Diagnostic Test (Pha) (Accu-Chek) 1 ea 02 XX ; Start 02/05/17 at 02:00 Clonidine HCl (Catapres-Tts 3 Patch) 1 patch Q7D TRANSDERM Last administered on 02/05/17 14:25; Admin Dose 1 PATCH; Start 02/05/17 at 14:00 Benazepril HCl 10 mg 10 mg BID PO ; Start 02/05/17 at 21:00 Potassium Chloride/Sodium Chloride (KCl/NS) 165 ml @ 55 mls/hr ONCE ONCE IVPB Last administered on 02/05/17 15:31; Admin Dose 55 MLS/HR; Start 02/05/17 at 13:30; Stop 02/05/17 at 16:29 Potassium Chloride (Potassium Chloride Pwd/Soln) 40 meq ONCE ONCE GTB ; Start 02/05/17 at 16:30; Stop 02/05/17 at 16:31 DAYA WASHINGTON Feb 05, 2017 16:18
[2017-02-05] MEDS ORDERED: POTASSIUM CHLORIDE 20 MEQ POWDER FOR ORAL SOLN GTB ONE (16:30)
[2017-02-05] MEDS ORDERED: metFORMIN 500 MG TAB PO SCH (17:55)
--- NOTE | 2017-02-05 18:04 | RADRPT ---
Echocardiogram Report Patient Name: RHINA BRUNO Gender: Female Date: 1980 Study Date: 02-Feb-2017 Housetrailer Servicer: Selam Michelle [facility] Location: [facility] Ref. Physician: DAYA WASHINGTON Quality: Technically Difficult Study Procedures: Transthoracic echocardiogram with complete 2D, M-Mode, and doppler examination. Indications: Pre-op. 2D/M Mode Doppler Measurement Value Normal Ranges Measurement Value Normal Ranges LVIDd 2D 5.2 3.5 - 5.6 cm AV Peak Jefry 1.3 m/sec LVIDs 2D 3.8 2.1 - 4.1 cm AV Peak PG 7.0 mmHg FS 2D 26.8 % AI Peak PG 99.0 mmHg LVPWd 2D 1.0 0.6 - 1.1 cm AI Peak Jefry 5.0 m/sec IVSd 2D 1.1 0.6 - 1.1 cm AI PHT 394.0 msec IVS/LVPW 2D 1.1 LVOT Peak Jefry 0.8 m/sec AoR Diam 2D 3.1 2.0 - 3.7 cm LVOT Peak PG 3.0 mmHg LA/Ao 2D 1 0 - 1 MV E Peak Jefry 0.8 m/sec EDV 2D 139.0 cm3 MV A Peak Jefry 0.7 m/sec ESV 2D 54.4 cm3 MV E/A 1.0 LA Dimen 2D 3.7 2.3 - 4.0 cm MV Decel Time 165 msec MV E/A 1.0 Findings Left Ventricle: Lower limits of normal systolic function. Mild concentric left ventricular hypertrophy. Mild global left ventricular systolic dysfunction. Ejection fraction is visually estimated at 50 %. Tissue Doppler/Mitral Doppler indices are consistent with impaired relaxation (Stage I diastolic dysfunction). Right Ventricle: Normal right ventricular size. Normal right ventricular systolic function. Left Atrium: The left atrium is normal in size. Right Atrium: The right atrium is normal in size. Mitral Valve: Normal appearance and function of the mitral valve with trace physiologic regurgitation. Aortic Valve: No hemodynamically significant aortic stenosis by doppler. Aortic cusps appear mildly calcified. Mild aortic valve regurgitation. Tricuspid Valve: Normal appearance of the tricuspid valve. Unable to obtain RVSP due to minimal presence of tricuspid regurgitation. Pulmonic Valve: Pulmonic valve not well visualized. Pericardium: Normal pericardium with no significant pericardial effusion. Aorta: Normal aortic root. IVC: Normal size and normal respiratory collapse consistent with normal right atrial pressure. Conclusions 1.Lower limits of normal systolic function. Mild concentric left ventricular hypertrophy. Mild global left ventricular systolic dysfunction. Ejection fraction is visually estimated at 50 %. Tissue Doppler/Mitral Doppler indices are consistent with impaired relaxation (Stage I diastolic dysfunction). 2.Normal appearance and function of the mitral valve with trace physiologic regurgitation. 3.No hemodynamically significant aortic stenosis by doppler. Aortic cusps appear mildly calcified. Mild aortic valve regurgitation. 4.Normal appearance of the tricuspid valve. Unable to obtain RVSP due to minimal presence of tricuspid regurgitation. Electronically Signed By: Pramod Elmore 05-Feb-2017 18:04:23 -0700 Patient Name: RHINA BRUNO Study Date: 02-Feb-2017 [id number]
[2017-02-05] MEDS ORDERED: BENAZEPRIL 10 MG TAB PO SCH (21:00)
--- NOTE | 2017-02-06 19:15 | DS ---
Date/Time of Note Date/Time of Note DATE: 02/06/17 TIME: 19:13 Discharge Summary Admission/Discharge Info Admit Date/Time Feb 02, 2017 at 01:54 Discharge Date/Time Feb 05, 2017 at 20:15 Hx of Present Illness The patient is a 36-year-old female with past medical history of diabetes, hypertension, depression, obesity. Patient was previously admitted in November of this year for diverticulitis with microperforation of sigmoid colon, at that time patient underwent diagnostic laparoscopy with sigmoid colon was sealed by Dr. Unger. Patient recovered and was able to tolerate regular diet and had a bowel movement until couple of days ago. Patient stated that she developed left lower quadrant pain however she waited to come to the hospital because of her daughter's birthday on . Patient presented to the emergency room and underwent CT of the abdomen and pelvis which revealed mild stranding, free fluid and free air within the abdomen suggestive of viscus perforation. Patient denies any fever, chills denies chest pain denies shortness of breath. Patient's blood sugar was noted to be elevated to 400, patient was giving IV fluids with some improvement in blood sugar. Hospital Course Patient had elevated blood sugar above 300, restart metformin, continue Lantus, restart pre-meal NovoLog. Hypokalemia potassium replaced. Patient also complains of bilateral lower extremities edema , pending 2D echo reading. PT LEFT AMA -Poorly controlled diabetes mellitus with hemoglobin A1c 10.4, continue metformin, Lantus, pre-meal NovoLog and NovoLog sliding scale. Patient requested gluten patient needs glucometer prior to discharge, diabetes education consult requested. -Hypokalemia, potassium replaced, continue to monitor. -Perforated viscous, Dr. Kong is following in general surgery consultation. Patient is started on diet, denies any nausea vomiting. -Hypertension, continue benazepril. -Depression -Obesity with BMI of 30.8 Further recommendations based on clinical course. Plan of care discussed with Dr. Sanchez. Home Meds Active Scripts Metronidazole* (Flagyl*) 500 Mg Tablet, 500 MG PO Q8 for 7 Days, #21 TAB Prov:TAVON MENDOZA [employer] 11/30/16 Cephalexin* (Keflex*) 500 Mg Capsule, 500 MG PO Q6, #28 CAP Prov:TAVON MENDOZA [employer] 11/30/16 Reported Medications Citalopram Hydrobromide* (Celexa*) 20 Mg Tablet, 20 MG PO DAILY, #30 TAB 11/27/16 Buspirone Hcl* (Buspirone Hcl*) 10 Mg Tab, 10 MG PO BID, TAB 11/27/16 Valsartan* (Diovan*) 320 Mg Tablet, 320 MG PO DAILY, TAB 11/27/16 Furosemide* (Furosemide*) 20 Mg Tablet, 20 MG PO BID, #30 TAB 11/27/16 Metformin* (Glucophage*) 500 Mg Tab, 500 MG PO BID, #30 TAB 11/27/16 Primary Care Provider DAYA Paige Feb 06, 2017 19:15
== END 2017-02-05 20:15 | disposition left against medical advice (07) | DRG 392 ==
LOC: FTE 20:15 → MS1 02-02 01:54
PROVIDERS: ADMIT Internal Medicine; ATTEND Internal Medicine
DX: K57.20 Diverticulitis of large intestine with perforation and abscess without bleeding (principal); E11.65 Type 2 diabetes mellitus with hyperglycemia; I10 Essential (primary) hypertension; E66.9 Obesity, unspecified; E87.6 Hypokalemia; F41.9 Anxiety disorder, unspecified; F32.9 Major depressive disorder, single episode, unspecified; Z68.30 Body mass index [BMI] 30.0-30.9, adult
CPT/HCPCS: 36415; 71010; 74177; 80048; 80053; 80061; 81001; 82962; 83036; 83690; 83880; 84484; 84703; 85025; 93005; 93306; 96372; 96374; J0360; J1815; J2270; J2543; J3480; J7030; J7042; Q9967